=== PATIENT | female | born 1935 | race Two or more races ===

== ENCOUNTER 2016-03-26 18:19 | Inpatient (IN) | payer MEDICARE, OTHER ==
[~2016-03-26] VITALS: Ht 160 cm; Wt 68.0 kg
[~2016-03-26 18:19] MED LIST: ADALAT20 MG ORAL; ASPIRIN EC81 MG ORAL; ATIVAN0.5 MG ORAL; ATORVASTATIN CA20 MG ORAL; CARDIZEM30 MG ORAL; CARDIZEM60 MG ORAL; CATAPRES0.1 MG ORAL; CATAPRES0.2 MG ORAL; CEFTRIAXON1 GM/50 ML IV; CHERATUSSIN AC118 ML PO; COMBIVENT RESPIM4 GM IH; COUMADIN3 MG ORAL; CRANBERRY TABL1 EACH PO; DUONEB 0.5-3(2.53 ML HHN; FERROUS SULFAT325 MG ORAL; HYDROCODON-ACE1 EA18 PO; LEVOTHYROXINE88 MCG ORAL; LOSARTAN POTASS50 MG ORAL; METOPROLOL TART50 M1 ORAL; MIRALAX17 G2 ORAL; MULTIVITAMINS1 EAC2 ORAL; NOVOLOG100 UNIT/5 SQ; OMEPRAZOLE20 M2 ORAL; OYSTER SHELL C500 MG PO; REMERON15 MG ORAL; ROBITUSSIN NIG118 ML PO; STARLIX60 MG ORAL; TYLENOL650 MG/20. ORAL; VITAMIN D400 INTLU ORAL; ZANTAC150 MG ORAL; ZOFRAN4 M1 ORAL; ZOFRAN4 M3 ORAL
[2016-03-26 18:30] VITALS: BP 223/108
--- NOTE | 2016-03-26 19:07 | Emergency Room Report ---
History of Present Illness General Chief Complaint: Upper Respiratory Illness Source: Patient, Family Member Present Illness HPI Patient present with complaints of shortness of breath Family reports that around 5:00 this evening patient became increasingly short of breath Increased cough They feel that the patient's mouth area had become more blue , Reports that they have requested oxygen but the patient did not have oxygen Denies any chest pain Was no reports of chest heaviness or pain Denies any vomiting or diarrhea denies any recent travel Patient had a recent hospitalization Allergies: Coded Allergies: No Known Allergies (Unverified , 02/11/16) Patient History Past Medical History: see triage record Pertinent Family History: none Reviewed Nursing Documentation: PMH: Agreed, PSxH: Agreed Nursing Documentation-PMH Hx Cardiac Problems: Yes - A-FLUTTER Hx Hypertension: Yes Hx Gastrointestinal Problems: Yes - GERD Hx Cerebrovascular Accident: Yes - April 2015, first CVA 2003 Review of Systems All Other Systems: negative except mentioned in HPI Physical Exam Vital Signs Date Time Temp Pulse Resp B/P Pulse Ox O2 Delivery O2 Flow Rate FiO2 03/26/16 18:15 92 20 213/81 99 Room Air 03/26/16 18:30 98.2 Sp02 EP Interpretation: reviewed, normal General Appearance: mild distress - Patient appears tachypneic and uncomfortable Head: normocephalic, atraumatic Eyes: bilateral eye EOMI, bilateral eye PERRL ENT: hearing grossly normal, normal pharynx, TMs + canals normal, uvula midline Neck: full range of motion, supple, no meningismus, no bony tend Respiratory: no retraction, no accessory muscle use, crackles - Diffusely Cardiovascular #1: normal peripheral pulses, regular rate, rhythm, no edema, no gallop, no JVD, no murmur Gastrointestinal: normal bowel sounds, non tender, soft, no mass, no organomegaly, non-distended, no guarding, no hernia, no pulsatile mass, no rebound Genitourinary: no CVA tenderness Musculoskeletal: normal inspection Neurologic: oriented x3, responsive, assistant buyer III-XII nml as tested, motor strength/ tone normal, sensory intact Psychiatric: mood/affect normal Skin: other - Rash noted to the mid upper chest area Lymphatic: normal inspection, no adenopathy Medical Decision Making Diagnostic Impression: Primary Impression: Hypertensive urgency, malignant Additional Impressions: Renal failure Hyperkalemia Respiratory distress ER Course Patient is a fairly complex patient with multiple differential to consideration including but not limited to cardiac cardiopulmonary and vascular emergencies Patient's blood work reveals worsening symptoms from previous as any renal failure hyperkalemia Patient's blood pressure was addressed here as well Patient appears to be doing better on oxygen at this time requires admission for further care on previous admission it was documented multiple times of the patient's DO NOT RESUSCITATE I do not have a polst form however to confirm his Labs Test 03/26/16 18:50 03/26/16 19:33 03/26/16 19:52 White Blood Count 14.2 K/UL (4.8-10.8) Red Blood Count 4.30 M/UL (4.20-5.40) Hemoglobin 13.4 G/DL (12.0-16.0) Hematocrit 41.2 % (37.0-47.0) Mean Corpuscular Volume 96 FL (80-99) Mean Corpuscular Hemoglobin 31.2 PG (27.0-31.0) Mean Corpuscular Hemoglobin Concent 32.6 G/DL (32.0-36.0) Red Cell Distribution Width 14.4 % (11.6-14.8) Platelet Count 283 K/UL (150-450) Mean Platelet Volume 6.6 FL (6.5-10.1) Neutrophils (%) (Auto) % (45.0-75.0) Lymphocytes (%) (Auto) % (20.0-45.0) Monocytes (%) (Auto) % (1.0-10.0) Eosinophils (%) (Auto) % (0.0-3.0) Basophils (%) (Auto) % (0.0-2.0) Differential Total Cells Counted 100 Neutrophils % (Manual) 70 % (45-75) Lymphocytes % (Manual) 5 % (20-45) Monocytes % (Manual) 2 % (1-10) Eosinophils % (Manual) 13 % (0-3) Basophils % (Manual) 0 % (0-2) Band Neutrophils 10 % (0-8) Platelet Estimate Adequate Platelet Morphology Normal Red Blood Cell Morphology Normal Prothrombin Time 21.4 SEC (9.30-11.50) Prothromb Time International Ratio 2.1 (0.9-1.1) Activated Partial Thromboplast Time 25 SEC (23-33) Sodium Level 131 mEQ/L (135-145) Potassium Level 5.9 mEQ/L (3.4-4.9) Chloride Level 89 mEQ/L (98-107) Carbon Dioxide Level 21 mEQ/L (20-30) Anion Gap 21 (5-15) Blood Urea Nitrogen 46 mg/dL (7-23) Creatinine 2.1 mg/dL (0.5-0.9) Estimat Glomerular Filtration Rate mL/min (>60) Glucose Level 242 mg/dL (74-106) Lactic Acid Level 3.50 mmol/L (0.66-2.22) 3.00 mmol/L (0.66-2.22) Calcium Level 10.4 mg/dL (8.6-10.2) Total Bilirubin 0.5 mg/dL (0.0-1.2) Aspartate Amino Transf (AST/SGOT) 44 U/L (5-40) Alanine Aminotransferase (ALT/SGPT) 25 U/L (3-33) Alkaline Phosphatase 133 U/L (35-104) Total Creatine Kinase 55 U/L (26-140) Creatine Kinase MB < 1.5 ng/mL (< 3.8) Creatine Kinase MB Relative Index Troponin I < 0.30 ng/mL (<=0.30) Pro-B-Type Natriuretic Peptide 1036 pg/mL (0-450) Total Protein 10.0 g/dL (6.6-8.7) Albumin 3.8 g/dL (3.5-5.2) Globulin 6.2 g/dL Albumin/Globulin Ratio 0.6 (1.0-2.7) Lipase 58 U/L (< 60) Urine Color Pale yellow Urine Appearance Clear Urine pH 6.5 (4.5-8.0) Urine Specific [place] 1.010 (1.005-1.035) Urine Protein 4+ (NEGATIVE) Urine Glucose (UA) 2+ (NEGATIVE) Urine Ketones Negative (NEGATIVE) Urine Occult Blood 4+ (NEGATIVE) Urine Nitrite Positive (NEGATIVE) Urine Bilirubin Negative (NEGATIVE) Urine Urobilinogen Normal MG/DL (0.0-1.0) Urine Leukocyte Esterase 1+ (NEGATIVE) Urine RBC 5-10 /HPF (0 - 2) Urine WBC 15-20 /HPF (0 - 2) Urine Squamous Epithelial Cells Few /LPF (NONE/OCC) Urine Bacteria Many /HPF (NONE) EKG Diagnostic Results Rate: normal Rhythm: NSR ST Segments: no acute changes Rhythm Strip Diag. Results EP Interpretation: yes Rate: 88 Rhythm: NSR, no PVC's, no ectopy Chest X-Ray Diagnostic Results EP Interpretation: Yes Findings: no consolidation, no effusion, no pneumothorax Number of Views: 1 Last Vital Signs Date Time Temp Pulse Resp B/P Pulse Ox O2 Delivery O2 Flow Rate FiO2 03/26/16 18:58 88 29 Room Air 03/26/16 18:30 98.2 223/108 97 Status: improved Disposition: ADMITTED INPATIENT Condition: Critical Referrals: Hasmukh Cope MD (PCP) LUIS DANIEL BARRETO D.O. Mar 26, 2016 19:07
[2016-03-26] MEDS ORDERED: Nitroglycerin 2% oint pkt TOPIC ONE (19:15)
[2016-03-26] MEDS ORDERED: Levalbuterol Inh UD 1.25mg/0.5ml HHN ONE (19:15)
[2016-03-26 19:16] LABS: MEAN CORPUSCULAR HEMOGLOBIN 31.2 PG (27.0-31.0); MEAN CORPUSCULAR HGB CONC 32.6 G/DL (32.0-36.0); MEAN CORPUSCULAR VOLUME 96 FL (80-99); MEAN PLATELET VOLUME 6.6 FL (6.5-10.1); PLATELET COUNT 283 K/UL (150-450); RED CELL DISTRIBUTION WIDTH 14.4 % (11.6-14.8); WHITE BLOOD COUNT 14.2 K/UL (4.8-10.8)
[2016-03-26 19:19] LABS: ALANINE AMINOTRANSFERASE 25 U/L (3-33); ALBUMIN/GLOBULIN RATIO 0.6 (1.0-2.7); ANION GAP 21 (5-15); ASPARTATE AMINO TRANSFERASE 44 U/L (5-40); CALCIUM 10.4 mg/dL (8.6-10.2); CARBON DIOXIDE 21 mEQ/L (20-30); CHLORIDE 89 mEQ/L (98-107); CREATININE 2.1 mg/dL (0.5-0.9); HEMOLYSIS 325; LIPASE 58 U/L (< 60); POTASSIUM 5.9 mEQ/L (3.4-4.9); SODIUM 131 mEQ/L (135-145)
[2016-03-26 19:24] LABS: TROPONIN I < 0.30 ng/mL (<=0.30)
[2016-03-26 19:26] LABS: REFLEX LACTIC ACID YES OR NO YES
[2016-03-26 19:58] LABS: CKMB < 1.5 ng/mL (< 3.8); INR 2.1 (0.9-1.1); PROTHROMBIN TIME 21.4 SEC (9.30-11.50)
[2016-03-26] MEDS ORDERED: Sodium Polystyrene Sulfonate 15gm Powder ORAL ONE (20:00)
[2016-03-26] MEDS ORDERED: Albuterol ud Inhalation HHN ONE (20:00)
[2016-03-26 20:19] LABS: APPEARANCE,URINE CLEAR; KETONES,URINE NEGATIVE (NEGATIVE); LEUKOCYTE ESTERASE ,URINE 1+ (NEGATIVE); NITRITE,URINE POSITIVE (NEGATIVE); PH,URINE 6.5 (4.5-8.0); PROTEIN,URINE 4+ (NEGATIVE); UROBILINOGEN,URINE NORMAL MG/DL (0.0-1.0)
[2016-03-26 20:34] VITALS: BP 130/67
[2016-03-26 20:41] LABS: BACTERIA,URINE MANY /HPF; SQUAMOUS EPITHELIAL CELL,UR FEW /LPF (NONE/OCC)
[2016-03-26 20:42] LABS: WBC,URINE 15-20 /HPF (0 - 2)
[2016-03-26 20:55] LABS: BAND NEUTROPHILS % (MANUAL) 10 % (0-8); BASOPHILS % (MANUAL) 0 % (0-2); EOSINOPHILS % (MANUAL) 13 % (0-3); LYMPHOCYTES % (MANUAL) 5 % (20-45); NEUTROPHILS % (MANUAL) 70 % (45-75); PLATELET ESTIMATE ADEQUATE; PLATELET MORPHOLOGY NORMAL; TOTAL CELLS COUNTED 100
[2016-03-26 22:16] VITALS: BP 118/61
[2016-03-27] VITALS (9 sets, daily range): BP systolic 106–166; BP diastolic 45–101
[2016-03-27] MEDS ORDERED: Morphine Sulfate 2mg/ml Inj IVP PRN (12:00)
[2016-03-27] MEDS ORDERED: Labetalol 5mg/ml 20ml vial IV PRN (12:00)
[2016-03-27] MEDS ORDERED: Mylanta II UD 30ml ORAL PRN (12:00)
[2016-03-27] MEDS ORDERED: LORazepam Inj 2mg/ml 1ml IV PRN (12:00)
[2016-03-27] MEDS ORDERED: Zolpidem 5mg tab ORAL PRN (12:00)
[2016-03-27] MEDS ORDERED: Miralax 17gm pkt ORAL PRN (12:00)
[2016-03-27] MEDS ORDERED: Enalaprilat 2.5mg/2ml Inj IV PRN (12:00)
--- NOTE | 2016-03-27 12:24 | Consultation ---
History of Present Illness General Date patient seen: Mar 27, 2016 Chief Complaint: Upper Respiratory Illness Referring physician: Anatoliy Reason for Consultation: hypertensive emergency Present Illness HPI 80 year old female with hx of HTN, DM, anxiety, jail resident presented to ER with complaints of shortness of breath, starting around 5:00 PM of day of admission with Increased cough. Apparently she became cyanotic but there was no oxygen available at the nursing facility. There was no reports of chest heaviness or pain. Patient is currently awake, conversing in [place]ian. Pt's son and sister are at the bed site translating. Allergies: Coded Allergies: No Known Allergies (Unverified , 02/11/16) Medication History Scheduled Aspirin Ec* (Aspirin Ec*), 81 MG ORAL EVERY OTHER DAY, (Reported) Atorvastatin Calcium* (Atorvastatin Calcium*), 10 MG ORAL BEDTIME, (Reported) Ceftriaxone Na/Dextrose,Iso (Ceftriaxone 1 Gm Piggyback), 1 GM IV q24hr, ( Reported) Clonidine Hcl* (Catapres*), 0.2 MG ORAL Q4HR, (Reported) Clonidine Hcl* (Catapres*), 0.1 MG ORAL EVERY 4 HOURS, (Reported) Cranberry Conc/C/Bacill Coag (Cranberry Tablet), 1 EACH PO BID, (Reported) Diltiazem HCl (Diltiazem 12Hr ER), 30 MG ORAL EVERY 8 HOURS, (Reported) Diltiazem Hcl* (Cardizem*), 60 MG ORAL EVERY 6 HOURS, (Reported) Guaifenesin/Codeine Phosphate (Cheratussin Ac Syrup), 5 ML PO EVERY 4 HOURS, ( Reported) Insulin Aspart (Novolog), SQ BEFORE MEALS AND HS, (Reported) Ipratropium/Albuterol Sulfate (DuoNeb 0.5-3(2.5)mg/3ml), 3 ML HHN Q4HR, ( Reported) Lorazepam* (Ativan*), 0.5 MG ORAL EVERY 6 HOURS, (Reported) Lorazepam* (Ativan*), 0.5 MG ORAL Q6HR, (Reported) Nateglinide* (Starlix*), 60 MG ORAL THREE TIMES A DAY, (Reported) Polyethylene Glycol 3350* (Miralax*), 17 GM ORAL DAILY, (Reported) Ranitidine Hcl* (Zantac*), 150 MG ORAL DAILY, (Reported) Warfarin Sod* (Coumadin*), 3 MG ORAL DAILY, (Reported) Scheduled PRN Acetaminophen (Acetaminophen), 650 MG ORAL Q4HR PRN for Prn Headache/Temp > 101, (Reported) Ondansetron (Zofran), 4 MG ORAL Q6H PRN for Nausea & Vomiting, (Reported) Patient History Healthcare decision maker Resuscitation status Full Code Advanced Directive on File Past Medical/Surgical History Past Medical/Surgical History: (1) Hypertension (2) Diabetes mellitus Social History Social History: (1) penitentiary resident (2) DNR (do not resuscitate) Review of Systems All Other Systems: negative except mentioned in HPI Physical Exam General Appearance: WD/WN HEENT: normocephalic, atraumatic Neck: non-tender, normal alignment Respiratory/Chest: chest wall non-tender, lungs clear Cardiovascular/Chest: normal peripheral pulses, normal rate Abdomen: normal bowel sounds Genitourinary/Rectal: normal genital exam Extremities: normal range of motion Neurologic: field staff II-XII grossly normal Last 24 Hour Vital Signs Date Time Temp Pulse Resp B/P Pulse Ox O2 Delivery O2 Flow Rate FiO2 03/27/16 08:23 78 03/27/16 08:11 98.2 75 18 161/70 99 Nasal Cannula 2.0 03/27/16 08:00 96.8 81 19 166/82 97 Nasal Cannula 2.0 03/27/16 07:35 75 18 161/70 99 Nasal Cannula 2.0 03/27/16 05:59 72 21 137/66 99 Nasal Cannula 2.0 03/27/16 04:20 72 18 134/58 99 Nasal Cannula 2.0 03/27/16 02:22 79 21 125/57 100 Nasal Cannula 2.0 03/27/16 00:36 78 24 108/60 97 Nasal Cannula 2.0 03/26/16 22:16 98.2 84 21 118/61 100 Nasal Cannula 2.0 03/26/16 20:34 98.2 90 38 130/67 100 Nasal Cannula 2.0 03/26/16 20:22 87 24 100 Nasal Cannula 2.0 03/26/16 20:07 85 24 100 Nasal Cannula 2.0 03/26/16 20:03 81 23 99 Nasal Cannula 2.0 03/26/16 19:53 82 23 98 Nasal Cannula 2.0 28 03/26/16 19:52 82 23 Nasal Cannula 2.0 28 03/26/16 19:10 223/108 03/26/16 18:58 88 29 Room Air 03/26/16 18:30 98.2 88 29 223/108 97 Room Air 03/26/16 18:15 92 20 213/81 99 Room Air Intake and Output 03/26/16 03/27/16 19:00 07:00 Output Total 475 ml Balance -475 ml Output Urine Total 475 ml Laboratory Tests Test 03/26/16 18:50 03/26/16 19:33 03/26/16 19:52 White Blood Count 14.2 K/UL (4.8-10.8) H Red Blood Count 4.30 M/UL (4.20-5.40) Hemoglobin 13.4 G/DL (12.0-16.0) Hematocrit 41.2 % (37.0-47.0) Mean Corpuscular Volume 96 FL (80-99) Mean Corpuscular Hemoglobin 31.2 PG (27.0-31.0) H Mean Corpuscular Hemoglobin Concent 32.6 G/DL (32.0-36.0) Red Cell Distribution Width 14.4 % (11.6-14.8) Platelet Count 283 K/UL (150-450) Mean Platelet Volume 6.6 FL (6.5-10.1) Neutrophils (%) (Auto) % (45.0-75.0) Lymphocytes (%) (Auto) % (20.0-45.0) Monocytes (%) (Auto) % (1.0-10.0) Eosinophils (%) (Auto) % (0.0-3.0) Basophils (%) (Auto) % (0.0-2.0) Differential Total Cells Counted 100 Neutrophils % (Manual) 70 % (45-75) Lymphocytes % (Manual) 5 % (20-45) L Monocytes % (Manual) 2 % (1-10) Eosinophils % (Manual) 13 % (0-3) H Basophils % (Manual) 0 % (0-2) Band Neutrophils 10 % (0-8) H Platelet Estimate Adequate Platelet Morphology Normal Red Blood Cell Morphology Normal Prothrombin Time 21.4 SEC (9.30-11.50) H Prothromb Time International Ratio 2.1 (0.9-1.1) H Activated Partial Thromboplast Time 25 SEC (23-33) Sodium Level 131 mEQ/L (135-145) L Potassium Level 5.9 mEQ/L (3.4-4.9) H Chloride Level 89 mEQ/L (98-107) L Carbon Dioxide Level 21 mEQ/L (20-30) Anion Gap 21 (5-15) H Blood Urea Nitrogen 46 mg/dL (7-23) H Creatinine 2.1 mg/dL (0.5-0.9) H Estimat Glomerular Filtration Rate mL/min (>60) Glucose Level 242 mg/dL (74-106) H Lactic Acid Level 3.50 mmol/L (0.66-2.22) H 3.00 mmol/L (0.66-2.22) H Calcium Level 10.4 mg/dL (8.6-10.2) H Total Bilirubin 0.5 mg/dL (0.0-1.2) Aspartate Amino Transf (AST/SGOT) 44 U/L (5-40) H Alanine Aminotransferase (ALT/SGPT) 25 U/L (3-33) Alkaline Phosphatase 133 U/L (35-104) H Total Creatine Kinase 55 U/L (26-140) Creatine Kinase MB < 1.5 ng/mL (< 3.8) Creatine Kinase MB Relative Index Troponin I < 0.30 ng/mL (<=0.30) Pro-B-Type Natriuretic Peptide 1036 pg/mL (0-450) H Total Protein 10.0 g/dL (6.6-8.7) H Albumin 3.8 g/dL (3.5-5.2) Globulin 6.2 g/dL Albumin/Globulin Ratio 0.6 (1.0-2.7) L Lipase 58 U/L (< 60) Urine Color Pale yellow Urine Appearance Clear Urine pH 6.5 (4.5-8.0) Urine Specific [place] 1.010 (1.005-1.035) Urine Protein 4+ (NEGATIVE) H Urine Glucose (UA) 2+ (NEGATIVE) H Urine Ketones Negative (NEGATIVE) Urine Occult Blood 4+ (NEGATIVE) H Urine Nitrite Positive (NEGATIVE) H Urine Bilirubin Negative (NEGATIVE) Urine Urobilinogen Normal MG/DL (0.0-1.0) Urine Leukocyte Esterase 1+ (NEGATIVE) H Urine RBC 5-10 /HPF (0 - 2) H Urine WBC 15-20 /HPF (0 - 2) H Urine Squamous Epithelial Cells Few /LPF (NONE/OCC) Urine Bacteria Many /HPF (NONE) H Height (Feet): 5 Height (Inches): 3.00 Weight (Pounds): 150 Medications Current Medications Medications (Trade) Dose Ordered Sig/Matteo Route PRN Reason Start Time Stop Time Status Last Admin Dose Admin Acetaminophen (Tylenol) 650 mg Q4H PRN ORAL fever 03/27/16 12:00 04/26/16 11:59 UNV Al Hydroxide/Mg Hydroxide (Mylanta II) 30 ml Q6H PRN ORAL dyspepsia 03/27/16 12:00 04/26/16 11:59 UNV Aspirin (Ecotrin) 81 mg EVERY OTHER DAY ORAL 03/29/16 09:00 04/28/16 08:59 UNV Atorvastatin Calcium (Lipitor) 10 mg BEDTIME ORAL 03/27/16 21:00 04/26/16 20:59 UNV Clonidine HCl (Catapres) 0.1 mg EVERY 4 HOURS ORAL 03/27/16 13:00 04/26/16 12:59 UNV Dextrose (Dextrose 50%) STAT PRN IV Hypoglycemia 03/27/16 12:00 04/26/16 11:59 UNV Diltiazem HCl (Cardizem) 30 mg EVERY 8 HOURS ORAL 03/27/16 14:00 04/26/16 13:59 UNV Diltiazem HCl (Cardizem) 60 mg EVERY 6 HOURS ORAL 03/27/16 12:00 04/26/16 11:59 UNV Enalaprilat 2.5 mg 2.5 mg EVERY 4 HOURS PRN IV sbp more than 200 03/27/16 12:00 04/26/16 11:59 UNV Hydralazine HCl (Apresoline) 20 mg Q4H PRN IV sbp more than 160 03/27/16 12:00 04/26/16 11:59 UNV Labetalol HCl (Normodyne) 20 mg EVERY HOUR PRN IV sbo more than 180 03/27/16 12:00 04/26/16 11:59 UNV Lorazepam (Ativan 2mg/ml 1ml) 0.5 mg Q4H PRN IV For Anxiety 03/27/16 12:00 04/03/16 11:59 UNV Morphine Sulfate (Morphine Sulfate) 1 mg EVERY 4 HOURS PRN IVP For Pain 03/27/16 12:00 04/03/16 11:59 UNV Nateglinide (Starlix) 60 mg THREE TIMES A DAY ORAL 03/27/16 13:00 04/26/16 12:59 UNV Ondansetron HCl (Zofran) 4 mg Q6H PRN IVP Nausea & Vomiting 03/27/16 12:00 04/26/16 11:59 UNV Polyethylene Glycol (Miralax) 17 gm HSPRN PRN ORAL Constipation 03/27/16 12:00 04/26/16 11:59 UNV Sodium Chloride (Sodium Chloride 1000ml bag) 1,000 ml @ 100 mls/hr Q10H IV 03/27/16 12:15 04/26/16 12:14 UNV Vitamin A/Vitamin D (A & D Oint) 1 applic EVERY 12 HOURS TOPIC 03/27/16 21:00 04/26/16 20:59 UNV Zolpidem Tartrate (Ambien) 5 mg HSPRN PRN ORAL Insomnia 03/27/16 12:00 04/26/16 11:59 UNV Assessment/Plan Problem List: (1) Hypertensive urgency, malignant ICD Codes: I16.0 - Hypertensive urgency SNOMED: 691638510 (2) Acute encephalopathy ICD Codes: G93.40 - Encephalopathy, unspecified SNOMED: 7611773 (3) Dyspnea ICD Codes: R06.00 - Dyspnea, unspecified SNOMED: 503322039 Qualifiers: Qualified Codes: R06.02 - Shortness of breath (4) ATN (acute tubular necrosis) ICD Codes: N17.0 - Acute kidney failure with tubular necrosis SNOMED: 31298318 (5) DNR (do not resuscitate) ICD Codes: Z66 - Do not resuscitate SNOMED: 951115292 Assessment/Plan monitor bp and treat monitor renal parameters IV fluids renal studies repiratory treatment dvt prophylaxis titrate cardiacmeds. pts sister and sons don't want any CPR AUDIE MAY Mar 27, 2016 12:24
[2016-03-27] MEDS: NovoLOG Insulin Flexpen SUBQ SCH ×3 (13:15→20:47)
--- NOTE | 2016-03-27 13:31 | Consultation ---
BEATRIZ ESCALERA M.D. Mar 27, 2016 13:31
--- NOTE | 2016-03-27 13:48 | Cardiology Report ---
APPROVED REPORT EKG Measurement Heart [id number] DC [id number] [id number] Normal sinus rhythm Normal ECG
--- NOTE | 2016-03-27 13:57 | Consultation ---
Consult Note Assessment/Plan ID Dic # [id number] A: Proabable Pna Cough ( Dry ) and SOB Probable UTI Pyuria Leukocytosis JOYA HTN GERD CVA x 2 in 2016 Hypothyroidism P: cont Cefepime d# 1 Monitor CBC Monitor BMP Monitor C- Xray Monitor cultures ( Bl, Ur ) Thank you BEATRIZ ESCALERA M.D. Mar 27, 2016 13:57
--- NOTE | 2016-03-27 16:36 | Cardiac Electrophysiology PN ---
Subjective Subjective [id number] Objective Last 24 Hour Vital Signs Date Time Temp Pulse Resp B/P Pulse Ox O2 Delivery O2 Flow Rate FiO2 03/27/16 15:01 135/70 03/27/16 12:00 101 03/27/16 12:00 97.9 101 20 135/70 97 Nasal Cannula 2.0 03/27/16 08:23 78 03/27/16 08:11 98.2 75 18 161/70 99 Nasal Cannula 2.0 28 03/27/16 08:00 96.8 81 19 166/82 97 Nasal Cannula 2.0 03/27/16 07:35 75 18 161/70 99 Nasal Cannula 2.0 03/27/16 05:59 72 21 137/66 99 Nasal Cannula 2.0 03/27/16 04:20 72 18 134/58 99 Nasal Cannula 2.0 03/27/16 02:22 79 21 125/57 100 Nasal Cannula 2.0 03/27/16 00:36 78 24 108/60 97 Nasal Cannula 2.0 03/26/16 22:16 98.2 84 21 118/61 100 Nasal Cannula 2.0 03/26/16 20:34 98.2 90 38 130/67 100 Nasal Cannula 2.0 03/26/16 20:22 87 24 100 Nasal Cannula 2.0 28 03/26/16 20:07 85 24 100 Nasal Cannula 2.0 03/26/16 20:03 81 23 99 Nasal Cannula 2.0 28 03/26/16 19:53 82 23 98 Nasal Cannula 2.0 28 03/26/16 19:52 82 23 Nasal Cannula 2.0 03/26/16 19:10 223/108 03/26/16 18:58 88 29 Room Air 03/26/16 18:30 98.2 88 29 223/108 97 Room Air 03/26/16 18:15 92 20 213/81 99 Room Air Intake and Output 03/26/16 03/27/16 19:00 07:00 Output Total 475 ml Balance -475 ml Output Urine Total 475 ml Laboratory Tests Test 03/26/16 18:50 03/26/16 19:33 03/26/16 19:52 White Blood Count 14.2 K/UL (4.8-10.8) H Red Blood Count 4.30 M/UL (4.20-5.40) Hemoglobin 13.4 G/DL (12.0-16.0) Hematocrit 41.2 % (37.0-47.0) Mean Corpuscular Volume 96 FL (80-99) Mean Corpuscular Hemoglobin 31.2 PG (27.0-31.0) H Mean Corpuscular Hemoglobin Concent 32.6 G/DL (32.0-36.0) Red Cell Distribution Width 14.4 % (11.6-14.8) Platelet Count 283 K/UL (150-450) Mean Platelet Volume 6.6 FL (6.5-10.1) Neutrophils (%) (Auto) % (45.0-75.0) Lymphocytes (%) (Auto) % (20.0-45.0) Monocytes (%) (Auto) % (1.0-10.0) Eosinophils (%) (Auto) % (0.0-3.0) Basophils (%) (Auto) % (0.0-2.0) Differential Total Cells Counted 100 Neutrophils % (Manual) 70 % (45-75) Lymphocytes % (Manual) 5 % (20-45) L Monocytes % (Manual) 2 % (1-10) Eosinophils % (Manual) 13 % (0-3) H Basophils % (Manual) 0 % (0-2) Band Neutrophils 10 % (0-8) H Platelet Estimate Adequate Platelet Morphology Normal Red Blood Cell Morphology Normal Prothrombin Time 21.4 SEC (9.30-11.50) H Prothromb Time International Ratio 2.1 (0.9-1.1) H Activated Partial Thromboplast Time 25 SEC (23-33) Sodium Level 131 mEQ/L (135-145) L Potassium Level 5.9 mEQ/L (3.4-4.9) H Chloride Level 89 mEQ/L (98-107) L Carbon Dioxide Level 21 mEQ/L (20-30) Anion Gap 21 (5-15) H Blood Urea Nitrogen 46 mg/dL (7-23) H Creatinine 2.1 mg/dL (0.5-0.9) H Estimat Glomerular Filtration Rate mL/min (>60) Glucose Level 242 mg/dL (74-106) H Lactic Acid Level 3.50 mmol/L (0.66-2.22) H 3.00 mmol/L (0.66-2.22) H Calcium Level 10.4 mg/dL (8.6-10.2) H Total Bilirubin 0.5 mg/dL (0.0-1.2) Aspartate Amino Transf (AST/SGOT) 44 U/L (5-40) H Alanine Aminotransferase (ALT/SGPT) 25 U/L (3-33) Alkaline Phosphatase 133 U/L (35-104) H Total Creatine Kinase 55 U/L (26-140) Creatine Kinase MB < 1.5 ng/mL (< 3.8) Creatine Kinase MB Relative Index Troponin I < 0.30 ng/mL (<=0.30) Pro-B-Type Natriuretic Peptide 1036 pg/mL (0-450) H Total Protein 10.0 g/dL (6.6-8.7) H Albumin 3.8 g/dL (3.5-5.2) Globulin 6.2 g/dL Albumin/Globulin Ratio 0.6 (1.0-2.7) L Lipase 58 U/L (< 60) Urine Color Pale yellow Urine Appearance Clear Urine pH 6.5 (4.5-8.0) Urine Specific [place] 1.010 (1.005-1.035) Urine Protein 4+ (NEGATIVE) H Urine Glucose (UA) 2+ (NEGATIVE) H Urine Ketones Negative (NEGATIVE) Urine Occult Blood 4+ (NEGATIVE) H Urine Nitrite Positive (NEGATIVE) H Urine Bilirubin Negative (NEGATIVE) Urine Urobilinogen Normal MG/DL (0.0-1.0) Urine Leukocyte Esterase 1+ (NEGATIVE) H Urine RBC 5-10 /HPF (0 - 2) H Urine WBC 15-20 /HPF (0 - 2) H Urine Squamous Epithelial Cells Few /LPF (NONE/OCC) Urine Bacteria Many /HPF (NONE) H Microbiology Date/Time Source Procedure Growth Status 03/26/16 18:50 Blood Blood Culture - Preliminary Resulted RICHARD HOWARD Mar 27, 2016 16:36
--- NOTE | 2016-03-27 16:50 | History & Physical ---
History and Physical History & Physicial Dictated for Int Med-Dr Cope no. [id number]. EMELY LORD Mar 27, 2016 16:50
[2016-03-27] MEDS: Nateglinide 60mg tab ORAL SCH (17:46)
--- NOTE | 2016-03-27 17:49 | Wound Care Consultation ---
Wound Assessment Wound Assessment #1: Wound Present on Admission: Yes New Wound: No Status Change of Wound: No Wound Location Body Site Modif: mid Wound Location Body Site: sacral Wound Type: pressure ulcer Pepe Test: Does not Pepe Pressure Ulcer Stage: deep tissue injury Wound Thickness: Full Thickness Wound Length: 5.0 Wound Width: 6.0 Wound Depth: utd Percent of Wound Purple/Maroon: 100 Wound Drainage Amount: None Wound Drainage Odor: None/Absent Tissue Surrounding Wound: Erythemic Wound General Appearance: Reddened Wound Assessment #2: Wound Number: #2 Wound Present on Admission: Yes New Wound: No Status Change of Wound: No Wound Location Body Site Modif: left Wound Location Body Site: buttocks Wound Type: pressure ulcer Pepe Test: Does not Pepe Pressure Ulcer Stage: I Wound Length: 4.0 Wound Width: 5.0 Wound Drainage Amount: None Wound Drainage Odor: None/Absent Tissue Surrounding Wound: Erythemic Wound General Appearance: Asymptomatic, Reddened Wound Assessment #3: Wound Number: #3 Wound Present on Admission: Yes New Wound: No Status Change of Wound: No Wound Location Body Site Modif: right Wound Location Body Site: buttocks Wound Type: pressure ulcer Pepe Test: Does not Pepe Pressure Ulcer Stage: I Wound Length: 5.0 Wound Width: 5.0 Wound Drainage Amount: None Wound Drainage Odor: None/Absent Tissue Surrounding Wound: Erythemic Wound General Appearance: Asymptomatic, Reddened Wound Comment #1 Sacral DTI #2 Left and Right buttocks stage I Recommendation -Keep clean and dry -Turn and reposition -Local wound care as ordered -Low air loss overlay mattress -Offload both heels -Optimize nutrition -Assess and f/u accordingly for any changes SPENCER DUGAN RN Mar 27, 2016 17:49
[2016-03-27 18:11] LABS: INR 3.2 (0.9-1.1); PROTHROMBIN TIME 33.9 SEC (9.30-11.50)
[2016-03-27] MEDS: Vitamin A&D Oint 2oz Tube TOPIC SCH (20:52)
--- NOTE | 2016-03-27 20:58 | Consultation ---
DATE OF CONSULTATION: CONSULTING PHYSICIAN: Johny Stone M.D. REASON FOR CONSULTATION: Evaluation of the patient for sepsis, leukocytosis, pneumonia, and antibiotic management. HISTORY OF PRESENT ILLNESS: The patient is an 80-year-old female who came to the hospital with above problems due to uncontrolled blood pressure, respiratory distress, and increase of cough. Infectious Disease consultation has been requested for further evaluation of the patient. At time of admission, the patient was found to have leukocytosis. According to the patient, patient is not able to pull out to produce sputum. PAST MEDICAL HISTORY: 1. Stroke. 2. History of hypothyroidism. 3. Hypertension. 4. GERD. 5. CVA x2. REVIEW OF SYSTEMS: HEENT: No recent change in vision or hearing. Pulmonary: As mentioned above. The patient has chronic cough that has worsened that is mainly dry. Cardiovascular: No pain. Gastrointestinal: GERD. Genitourinary: No dysuria. MEDICATIONS: Cefepime. ALLERGIES: No known drug allergies. SOCIAL HISTORY: Lives in longterm. FAMILY HISTORY: Noncontributory. PHYSICAL EXAMINATION: VITAL SIGNS: Temperature 97.9, blood pressure 135/70, pulse 86, and respiratory rate 18. HEENT: No icterus. NECK: No lymphadenopathy. CHEST: Coarse breathing sounds. HEART: S1 and S2. ABDOMEN: Soft and nontender. EXTREMITIES: No cyanosis. NEUROLOGIC: Awake and alert. LABORATORY DATA: White blood cells 14, hemoglobin 13, and platelets 288,000. UA shows 15 to 20 white blood cells. BUN 46 and creatinine 2.1. AST 44, ALT 25, and alkaline phosphatase 133. Urine culture back in January was growing enterococcus and Enterobacter. was redone. Chest x-ray pending. Urine culture is pending. Blood culture is pending. ASSESSMENT AND PLAN: 1. The patient is an 81-year-old female, who came to the hospital due to respiratory distress. Chest x-ray from the time of admission is pending. The patient was found to have leukocytosis. The patient's source of infection appears to be both pneumonia and urinary tract infection. The patient has been started on IV cefepime and we will continue the patient on IV cefepime. 2. Monitor CBC. 3. Monitor BMP. 4. Culture (blood, urine). 5. Monitor chest x-ray. 6. Based on the patient's clinical findings and labs, we will do further recommendations. Thank you, Dr. Cope for allowing me to participate in the care of this patient. I will follow the patient with you during this hospitalization Johny Stone M.D. DR: Angel JOB#: [id number] CC:
--- NOTE | 2016-03-27 21:18 | History and Physical Report ---
DATE OF ADMISSION: 03/26/[address] Cope. CHIEF COMPLAINT: The patient is an 80-year-old female, who presents with chief complaint of shortness of breath. HISTORY OF PRESENT ILLNESS: The patient was admitted to [facility] in 01/2016. The patient was admitted at that time for atrial fibrillation with rapid ventricular rate. The patient is currently a resident of [facility]. According to staff at [facility], the patient has experienced shortness of breath for the last couple of days. The patient also has a cough, which is nonproductive. The patient presented to [facility]. The patient was admitted for shortness of breath to rule out congestive heart failure versus pneumonia. PAST MEDICAL HISTORY: Significant for, 1. Cerebrovascular disease, status post cerebrovascular accident in 04/2015. 2. Right hemiparesis. 3. Diabetes type 2. 4. Hypertension. 5. History of chronic renal failure. PAST SURGICAL HISTORY: Significant for, 1. Appendectomy. 2. Total abdominal hysterectomy. 3. Tonsillectomy. CURRENT MEDICATIONS: 1. Tylenol 650 mg one tablet p.o. q.4 hours p.r.n. 2. Enteric-coated aspirin 81 mg one tablet p.o. daily. 3. Lipitor 20 mg one tablet p.o. daily. 4. Clonidine 0.2 mg one tablet p.o. q.4 hours p.r.n. 5. Diltiazem 60 mg one tablet p.o. daily. 6. Diltiazem 30 mg one tablet p.o. q.8 hours. 7. NovoLog sliding scale. 8. Ativan 0.5 mg p.o. q.6 hours. 9. Starlix 60 mg one tablet p.o. 3 times daily. 10. Zofran 4 mg one tablet p.o. q.6 hours p.r.n. 11. Coumadin 3 mg one tablet p.o. daily. ALLERGIES: No known drug allergies. SOCIAL HISTORY: The patient is single. The patient has 2 adult sons. The patient's sister is present at bedside who is providing much of the history and physical. The patient denies tobacco or alcohol use. REVIEW OF SYSTEMS: Constitutional: The patient denies weight loss or weight gain. The patient denies fevers or chills. HEENT: The patient denies ear or throat pain. The patient denies headache. Cardiovascular: The patient denies palpitations or chest pain. Chest: The patient complains of shortness of breath. The patient complains of a nonproductive cough. The patient denies wheezes. Abdomen: The patient denies nausea, vomiting, diarrhea, or constipation. Genitourinary: The patient denies dysuria or increased frequency of urination. Neuromuscular: The patient denies seizures or generalized weakness. PHYSICAL EXAMINATION: VITAL SIGNS: Temperature is 96.8 degrees, respirations 19, pulse 81, and blood pressure 166/82. GENERAL: The patient is a well-developed, well-nourished, female, in no apparent distress. HEENT: Eyes, pupils are equal and responsive to light and accommodation. Extraocular movements intact. NECK: Supple without lymphadenopathy. CHEST: Few scattered rales at bilateral bases. Otherwise, clear to auscultation bilaterally without wheezes. ABDOMEN: Soft, nontender, and nondistended. Positive bowel sounds. No evidence of hepatosplenomegaly. Currently, no rebound or guarding. EXTREMITIES: No clubbing, cyanosis, or edema. RECTAL/GENITAL: Refused. NEUROLOGIC: The patient does have a right 2/5 motor strength compared to the left. Otherwise, motor strength is 5/5 bilaterally. Deep tendon reflexes are 2+ plantar. LABORATORY STUDIES: WBC 14.2, hemoglobin 13.4, hematocrit 41.2, and platelets 283,000. Sodium 131, potassium 5.9, chloride 89, CO2 21, BUN 46, and creatinine 2.1. Glucose is 242. Chest x-ray is pending. ASSESSMENT: This is an 80-year-old female. 1. Shortness of breath. 2. Renal failure. 3. Hypertension. 4. Congestive heart failure. 5. Atrial fibrillation. 6. Cerebrovascular disease. 7. Right hemiparesis. 8. Hypercholesterolemia. 9. Diabetes type 2. TREATMENT: 1. Shortness of breath. This may be secondary to pneumonia versus congestive heart failure. A Cardiology consultation was obtained with Dr. Serjio San. A Pulmonary consultation was obtained with Dr. Mott. The patient has been placed empirically on cefepime for possible pneumonia. An Infectious disease consultation was obtained with Dr. Stone. 2. Renal failure. This is acute on chronic. The patient is currently dehydrated. The patient is receiving intravenous fluids. A Nephrology consultation is pending. 3. Hypertension. Continue diltiazem and clonidine as above. 4. History of atrial fibrillation. A Cardiology consultation was obtained with Dr. Serjio San. The patient is currently on Coumadin. 5. Congestive heart failure. An echocardiogram is pending. A Cardiology consultation was obtained with Dr. Serjio San. 6. Right hemiparesis. 7. Hypercholesterolemia. Continue Lipitor as above. 8. Diabetes type 2. Continue NovoLog sliding scale. Vladimir Shelby M.D. DR: QUE JOB#: [id number] CC:
--- NOTE | 2016-03-27 22:18 | Consultation ---
DATE OF CONSULTATION: INCOMPLETE DICTATION CARDIOLOGY CONSULTATION: Serjio San M.D. DR: Diana JOB#: [id number] CC:
[2016-03-28 00:16] VITALS: BP 133/52
--- NOTE | 2016-03-28 02:48 | Consultation ---
DATE OF CONSULTATION: 03/27/2016 CARDIOLOGY CONSULTATION CONSULTING PHYSICIAN: Serjio San M.D. REFERRING PHYSICIAN: Hasmukh Cope M.D. REASON FOR CONSULTATION: Recurrence of atrial flutter and hypertension. HISTORY OF PRESENT ILLNESS: The patient is a very pleasant 80-year-old lady I am quite familiar with from her previous admission less than a month ago. The patient has a history of hypertension and atrial fibrillation with rapid ventricular response for which she was on Cardizem, heparin drip, and Coumadin on the previous admission. The patient also ventricular bradycardia digoxin. The patient also has history of renal failure, sepsis, and encephalopathy. The patient was brought to the emergency room for her recurrence of her symptoms due to the atrial fibrillation. The patient also has shortness of breath and hypertensive emergency, blood pressure 230s. At the time of my evaluation, the patient denies any chest pain, palpitation, or shortness of breath. The patient's sister is at the bedside. REVIEW OF SYSTEMS: Negative other what was mentioned in the history of present illness. PAST MEDICAL HISTORY: 1. Hypertension. 2. Atrial fibrillation. 3. Hyperlipidemia. 4. History of respiratory failure. SOCIAL HISTORY: She [place] [facility] [place]. She is Do Not Resuscitate. FAMILY HISTORY: Noncontributory. PHYSICAL EXAMINATION: VITAL SIGNS: Blood pressure is 134/70, pulse 100, respirations 18, temperature 98. HEAD AND NECK: Shows no JVD. LUNGS: Coarse rhonchi. CARDIOVASCULAR: Regular S1 and S2 with no gallop or murmur. ABDOMEN: Soft and nontender. EXTREMITIES: No pitting edema. LABORATORY DATA: White count 14.2, hemoglobin 13.4, hematocrit 41.2. His sodium 131, potassium 5.9, BUN of 46 and creatinine 2.1, glucose 242. Troponin is negative. ASSESSMENT AND PLAN: 1. Atrial flutter. We will continue rate control with Cardizem 60 mg a day q. 6 h. I will start the patient on the Coumadin for her anticoagulation. Her INR is therapeutic at 2.1. 2. Hypertension. Continue Cardizem. 3. Shortness of breath and cough, possible pneumonia, on antibiotics. 4. Cerebrovascular accident x2 in 2005. 5. Hypothyroidism. 6. Renal failure. 7. . 8. Do not resuscitate. Thank you very much, Dr. Cope, for allowing me to participate in the care of this patient. Please do not hesitate to contact me for any questions regarding my evaluation. The case was discussed with Dr. Mott and Dr. Shelby as well. Serjio San M.D. DR: Lisa JOB#: [id number] CC:
[2016-03-28 04:59] VITALS: BP 109/55
[2016-03-28 05:39] LABS: MEAN CORPUSCULAR HEMOGLOBIN 31.5 PG (27.0-31.0); MEAN CORPUSCULAR HGB CONC 33.4 G/DL (32.0-36.0); MEAN CORPUSCULAR VOLUME 94 FL (80-99); MEAN PLATELET VOLUME 6.9 FL (6.5-10.1); PLATELET COUNT 198 K/UL (150-450); RED BLOOD COUNT 3.12 M/UL (4.20-5.40); RED CELL DISTRIBUTION WIDTH 14.5 % (11.6-14.8)
[2016-03-28 05:49] LABS: INR 2.7 (0.9-1.1); PROTHROMBIN TIME 28.1 SEC (9.30-11.50)
[2016-03-28 05:55] LABS: WHITE BLOOD COUNT 23.5 K/UL (4.8-10.8)
[2016-03-28 06:14] LABS: TROPONIN I < 0.30 ng/mL (<=0.30)
[2016-03-28 06:17] LABS: ALANINE AMINOTRANSFERASE 17 U/L (3-33); ALBUMIN/GLOBULIN RATIO 0.6 (1.0-2.7); ANION GAP 16 (5-15); ASPARTATE AMINO TRANSFERASE 16 U/L (5-40); CARBON DIOXIDE 26 mEQ/L (20-30); CHLORIDE 97 mEQ/L (98-107); CHOLESTEROL 157 mg/dL (< 200); CHOLESTEROL/HDL RATIO 5.2 (3.3-4.4); HEMOLYSIS 1; LDL CHOLESTEROL (CALC.) 95 mg/dL (60-99); SODIUM 139 mEQ/L (135-145); TOTAL PROTEIN 7.1 g/dL (6.6-8.7)
[2016-03-28] MEDS: NovoLOG Insulin Flexpen SUBQ SCH ×4 (06:21→21:49)
[2016-03-28 06:30] LABS: POTASSIUM 2.7 mEQ/L (3.4-4.9)
--- NOTE | 2016-03-28 07:38 | Infectious Diseases Prog Note ---
Assessment/Plan Assessment/Plan A: GNR bacteremia 2/4 - C&S pending Probable Pna - CXR pending Cough ( Dry ) and SOB GNR UTI - C&S pending, recent E.aerogenes, S.viridans Loose stools r/o C.difficile with recent ABX exposure Severe sepsis - improved lactic acidosis Leukocytosis - worse, afebrile JOYA - worse Acute anemia CVA x 2 in 2016 MRSA colonized Chemical code only P: broaden Cefepime d# 2 to invanz d# 1 ( risk inducible resistance with E.aerogenes, worsening leukocyosis ), add empiric flagyl d# 1 check C.difficile f/u cultures, adjust ABX accordingly Monitor CBC Monitor BMP Monitor C- Xray Subjective Allergies: Coded Allergies: No Known Allergies (Unverified , 02/11/16) Subjective remains afebrile. WBC up cultures noted Objective Vital Signs Last 24 Hour Vital Signs Date Time Temp Pulse Resp B/P Pulse Ox O2 Delivery O2 Flow Rate FiO2 03/28/16 06:24 83 110/58 03/28/16 05:00 106/52 03/28/16 04:59 98.1 89 19 109/55 94 Nasal Cannula 03/28/16 04:00 86 03/28/16 00:55 99/52 03/28/16 00:22 97.7 03/28/16 00:16 97.7 103 19 133/52 94 Room Air 5.0 03/28/16 00:00 103 03/27/16 21:14 104 130/98 03/27/16 20:46 106/45 03/27/16 20:00 97.8 104 28 130/101 97 Nasal Cannula 3.0 03/27/16 20:00 81 03/27/16 17:00 106/45 03/27/16 16:00 91 03/27/16 16:00 98.1 95 14 106/45 96 03/27/16 15:01 135/70 03/27/16 12:00 101 03/27/16 12:00 97.9 101 20 135/70 97 Nasal Cannula 2.0 03/27/16 08:23 78 03/27/16 08:11 98.2 75 18 161/70 99 Nasal Cannula 2.0 28 03/27/16 08:00 96.8 81 19 166/82 97 Nasal Cannula 2.0 03/27/16 07:35 75 18 161/70 99 Nasal Cannula 2.0 Height (Feet): 5 Height (Inches): 3.00 Weight (Pounds): 150 General Appearance: no acute distress Respiratory/Chest: no respiratory distress Cardiovascular: normal rate, regular rhythm Abdomen: normal bowel sounds, soft, non tender, non distended Microbiology Date/Time Source Procedure Growth Status 03/26/16 18:50 Blood Blood Culture - Preliminary Gram Negative Aj Resulted 03/26/16 18:30 Blood Blood Culture - Preliminary NO GROWTH AFTER 24 HOURS Resulted 03/26/16 19:33 Nasal Nares MRSA Culture - Final Staphylococcus Aureus - Mrsa Complete 03/26/16 19:33 Urine,Clean Catch Urine Culture - Preliminary Gram Negative Aj Resulted Laboratory Tests Test 03/27/16 17:30 03/28/16 04:35 Prothrombin Time 33.9 SEC (9.30-11.50) H 28.1 SEC (9.30-11.50) H Prothromb Time International Ratio 3.2 (0.9-1.1) H 2.7 (0.9-1.1) H White Blood Count 23.5 K/UL (4.8-10.8) #*H Red Blood Count 3.12 M/UL (4.20-5.40) L Hemoglobin 9.8 G/DL (12.0-16.0) L Hematocrit 29.4 % (37.0-47.0) L Mean Corpuscular Volume 94 FL (80-99) Mean Corpuscular Hemoglobin 31.5 PG (27.0-31.0) H Mean Corpuscular Hemoglobin Concent 33.4 G/DL (32.0-36.0) Red Cell Distribution Width 14.5 % (11.6-14.8) Platelet Count 198 K/UL (150-450) Mean Platelet Volume 6.9 FL (6.5-10.1) Neutrophils (%) (Auto) % (45.0-75.0) Lymphocytes (%) (Auto) % (20.0-45.0) Monocytes (%) (Auto) % (1.0-10.0) Eosinophils (%) (Auto) % (0.0-3.0) Basophils (%) (Auto) % (0.0-2.0) Neutrophils % (Manual) Pending Lymphocytes % (Manual) Pending Platelet Estimate Pending Platelet Morphology Pending Sodium Level 139 mEQ/L (135-145) Potassium Level 2.7 mEQ/L (3.4-4.9) #*L Chloride Level 97 mEQ/L (98-107) L Carbon Dioxide Level 26 mEQ/L (20-30) Anion Gap 16 (5-15) H Blood Urea Nitrogen 56 mg/dL (7-23) H Creatinine 3.0 mg/dL (0.5-0.9) H Estimat Glomerular Filtration Rate mL/min (>60) Glucose Level 254 mg/dL (74-106) H Calcium Level 8.0 mg/dL (8.6-10.2) #L Total Bilirubin 0.5 mg/dL (0.0-1.2) Aspartate Amino Transf (AST/SGOT) 16 U/L (5-40) Alanine Aminotransferase (ALT/SGPT) 17 U/L (3-33) Alkaline Phosphatase 99 U/L (35-104) Troponin I < 0.30 ng/mL (<=0.30) Pro-B-Type Natriuretic Peptide 26699 pg/mL (0-450) H Total Protein 7.1 g/dL (6.6-8.7) Albumin 2.8 g/dL (3.5-5.2) L Globulin 4.3 g/dL Albumin/Globulin Ratio 0.6 (1.0-2.7) L Triglycerides Level 161 mg/dL (< 150) H Cholesterol Level 157 mg/dL (< 200) LDL Cholesterol 95 mg/dL (60-99) HDL Cholesterol 30 mg/dL (> 60) Cholesterol/HDL Ratio 5.2 (3.3-4.4) H Thyroid Stimulating Hormone (TSH) 30.150 uIU/mL (0.300-4.500) Current Medications Medications (Trade) Dose Ordered Sig/Matteo Route PRN Reason Start Time Stop Time Status Last Admin Dose Admin Acetaminophen (Tylenol) 650 mg Q4H PRN ORAL fever 03/27/16 12:00 04/26/16 11:59 Al Hydroxide/Mg Hydroxide (Mylanta II) 30 ml Q6H PRN ORAL dyspepsia 03/27/16 12:00 04/26/16 11:59 Aspirin (Ecotrin) 81 mg EVERY OTHER DAY ORAL 03/29/16 09:00 04/28/16 08:59 Atorvastatin Calcium (Lipitor) 10 mg BEDTIME ORAL 03/27/16 21:00 04/26/16 20:59 03/27/16 20:46 Cefepime HCl/ Dextrose (Maxipime/D5W 50ml) 50 ml @ 100 mls/hr Q24H IVPB 03/27/16 17:30 04/03/16 17:29 03/27/16 17:46 Clonidine HCl (Catapres) 0.1 mg EVERY 4 HOURS ORAL 03/27/16 15:00 04/26/16 14:59 03/27/16 15:01 Dextrose (Dextrose 50%) STAT PRN IV Hypoglycemia 03/27/16 12:00 04/26/16 11:59 Diltiazem HCl (Cardizem) 90 mg EVERY 8 HOURS ORAL 03/27/16 22:00 04/26/16 21:59 03/28/16 06:24 Enalaprilat 2.5 mg 2.5 mg Q4H PRN IV sbp more than 200 03/27/16 12:00 04/26/16 11:59 Hydralazine HCl (Apresoline) 20 mg Q4H PRN IV sbp more than 160 03/27/16 12:00 04/26/16 11:59 Insulin Aspart BEFORE MEALS AND HS SUBQ 03/27/16 13:30 04/26/16 13:29 03/28/16 06:21 Labetalol HCl (Normodyne) 20 mg Q1H PRN IV sbp more than 180 03/27/16 12:00 04/26/16 11:59 Lorazepam (Ativan 2mg/ml 1ml) 0.5 mg Q4H PRN IV For Anxiety 03/27/16 12:00 04/03/16 11:59 Morphine Sulfate (Morphine Sulfate) 1 mg Q4H PRN IVP for severe pain 03/27/16 12:00 04/03/16 11:59 03/27/16 23:52 Nateglinide (Starlix) 60 mg THREE TIMES A DAY ORAL 03/27/16 18:00 04/26/16 17:59 03/27/16 17:46 Ondansetron HCl (Zofran) 4 mg Q6H PRN IVP Nausea & Vomiting 03/27/16 12:00 04/26/16 11:59 Polyethylene Glycol (Miralax) 17 gm HSPRN PRN ORAL Constipation 03/27/16 12:00 04/26/16 11:59 Sodium Chloride (Sodium Chloride 1000ml bag) 1,000 ml @ 100 mls/hr Q10H IV 03/27/16 15:45 04/26/16 15:44 03/27/16 22:21 Vitamin A/Vitamin D (A & D Oint) 1 applic EVERY 12 HOURS TOPIC 03/27/16 21:00 04/26/16 20:59 03/27/16 20:52 Warfarin Sodium (Coumadin per pharmacy) 1 ea DAILY PRN MISC Per rx protocol 03/27/16 16:45 04/26/16 16:44 Zolpidem Tartrate (Ambien) 5 mg HSPRN PRN ORAL Insomnia 03/27/16 12:00 04/26/16 11:59 SERA FORREST Mar 28, 2016 07:38
[2016-03-28 08:00] VITALS: BP 100/55
[2016-03-28] MEDS: Vitamin A&D Oint 2oz Tube TOPIC SCH ×2 (08:09→21:48)
[2016-03-28] MEDS: Nateglinide 60mg tab ORAL SCH ×3 (08:10→19:35)
[2016-03-28] MEDS ORDERED: Imdur 30mg tab ORAL SCH (09:00)
[2016-03-28 09:13] LABS: BAND NEUTROPHILS % (MANUAL) 20 % (0-8); LYMPHOCYTES % (MANUAL) 5 % (20-45); NEUTROPHILS % (MANUAL) 65 % (45-75); TOTAL CELLS COUNTED 100
[2016-03-28 09:25] LABS: HYPOCHROMASIA 2+
[2016-03-28 09:26] LABS: ANISOCYTOSIS 1+; BASOPHILS % (MANUAL) 0 % (0-2); EOSINOPHILS % (MANUAL) 0 % (0-3); PLATELET ESTIMATE ADEQUATE; PLATELET MORPHOLOGY NORMAL
[2016-03-28] MEDS: metroNIDAZOLE 500mg 100 ML IVPB SCH ×3 (09:29→21:47)
--- NOTE | 2016-03-28 11:24 | Pulmonology Progress Note ---
Assessment/Plan Problems: (1) Gram-negative bacteremia (2) Sepsis (3) Hypertensive urgency, malignant (4) Acute encephalopathy (5) ATN (acute tubular necrosis) (6) long term resident (7) Diabetes mellitus (8) DNR (do not resuscitate) Respiratory: monitor respiratory rate Cardiac: continue to monitor HR/BP Renal: F/U I&O Infectious Disease: check cultures Gastrointestinal: continue feedings/current rate Endocrine: monitor blood sugar, continue sliding scale insulin Hematologic: monitor H/H, transfuse if hgb<8.5 Neurologic: PRN Ativan, PRN Morphine, keep patient comfortable Affect: PRN ativan Notes Reviewed: hourly shift, cardio, renal Discussed with: nurses, consultants, corrections caseworker Subjective ROS Limited/Unobtainable: No Interval Events: c/o epigastric pain Allergies: Coded Allergies: No Known Allergies (Unverified , 02/11/16) Objective Last 24 Hour Vital Signs Date Time Temp Pulse Resp B/P Pulse Ox O2 Delivery O2 Flow Rate FiO2 03/28/16 08:10 100/55 03/28/16 08:00 97.9 77 20 100/55 98 Nasal Cannula 4.0 03/28/16 08:00 75 03/28/16 06:24 83 110/58 03/28/16 05:00 106/52 03/28/16 04:59 98.1 89 19 109/55 94 Nasal Cannula 03/28/16 04:00 86 03/28/16 00:55 99/52 03/28/16 00:22 97.7 03/28/16 00:16 97.7 103 19 133/52 94 Room Air 5.0 03/28/16 00:00 103 03/27/16 21:14 104 130/98 03/27/16 20:46 106/45 03/27/16 20:00 97.8 104 28 130/101 97 Nasal Cannula 3.0 03/27/16 20:00 81 03/27/16 17:00 106/45 03/27/16 16:00 91 03/27/16 16:00 98.1 95 14 106/45 96 03/27/16 15:01 135/70 03/27/16 12:00 101 03/27/16 12:00 97.9 101 20 135/70 97 Nasal Cannula 2.0 Intake and Output 03/27/16 03/28/16 19:00 07:00 Intake Total 300 ml 1378 ml Output Total 1000 ml 650 ml Balance -700 ml 728 ml Intake Oral 200 ml 200 ml IV Total 100 ml 1178 ml Output Urine Total 1000 ml 650 ml # Bowel Movements 2 1 General Appearance: WD/WN HEENT: normocephalic Respiratory/Chest: chest wall non-tender, normal breath sounds Cardiovascular: normal peripheral pulses, normal rate Abdomen: normal bowel sounds, soft, non tender Extremities: no cyanosis Skin: no rash Neurologic/Psychiatric: social media developer II-XII grossly normal Lymphatic: no neck adenopathy Microbiology Date/Time Source Procedure Growth Status 03/26/16 18:50 Blood Blood Culture - Preliminary Gram Negative Aj Resulted 03/26/16 18:30 Blood Blood Culture - Preliminary NO GROWTH AFTER 24 HOURS Resulted 03/26/16 19:33 Nasal Nares MRSA Culture - Final Staphylococcus Aureus - Mrsa Complete 03/26/16 19:33 Urine,Clean Catch Urine Culture - Preliminary Gram Negative Aj Resulted Laboratory Tests 03/27/16 17:30: Prothrombin Time 33.9H, Prothromb Time International Ratio 3.2H 03/28/16 04:35: Prothrombin Time 28.1H, Prothromb Time International Ratio 2.7H, White Blood Count 23.5#*H, Red Blood Count 3.12L, Hemoglobin 9.8L, Hematocrit 29.4L, Mean Corpuscular Volume 94, Mean Corpuscular Hemoglobin 31.5H, Mean Corpuscular Hemoglobin Concent 33.4, Red Cell Distribution Width 14.5, Platelet Count 198, Mean Platelet Volume 6.9, Neutrophils (%) (Auto) , Lymphocytes (%) (Auto) , Monocytes (%) (Auto) , Eosinophils (%) (Auto) , Basophils (%) (Auto) , Differential Total Cells Counted 100, Neutrophils % (Manual) 65, Lymphocytes % ( Manual) 5L, Monocytes % (Manual) 10, Eosinophils % (Manual) 0, Basophils % ( Manual) 0, Band Neutrophils 20H, Platelet Estimate Adequate, Platelet Morphology Normal, Hypochromasia 2+, Anisocytosis 1+, Sodium Level 139, Potassium Level 2.7#*L, Chloride Level 97L, Carbon Dioxide Level 26, Anion Gap 16H, Blood Urea Nitrogen 56H, Creatinine 3.0H, Estimat Glomerular Filtration Rate , Glucose Level 254H, Calcium Level 8.0#L, Total Bilirubin 0.5, Aspartate Amino Transf (AST/SGOT) 16, Alanine Aminotransferase (ALT/SGPT) 17, Alkaline Phosphatase 99, Troponin I < 0.30, Pro-B-Type Natriuretic Peptide 09197O, Total Protein 7.1, Albumin 2.8L, Globulin 4.3, Albumin/Globulin Ratio 0.6L, Triglycerides Level 161H, Cholesterol Level 157, LDL Cholesterol 95, HDL Cholesterol 30, Cholesterol/HDL Ratio 5.2H, Thyroid Stimulating Hormone (TSH) 30.150H Current Medications Medications (Trade) Dose Ordered Sig/Matteo Route PRN Reason Start Time Stop Time Status Last Admin Dose Admin Acetaminophen (Tylenol) 650 mg Q4H PRN ORAL fever 03/27/16 12:00 04/26/16 11:59 Al Hydroxide/Mg Hydroxide (Mylanta II) 30 ml Q6H PRN ORAL dyspepsia 03/27/16 12:00 04/26/16 11:59 Aspirin (Ecotrin) 81 mg EVERY OTHER DAY ORAL 03/29/16 09:00 04/28/16 08:59 Atorvastatin Calcium (Lipitor) 10 mg BEDTIME ORAL 03/27/16 21:00 04/26/16 20:59 03/27/16 20:46 Clonidine HCl (Catapres) 0.1 mg EVERY 4 HOURS ORAL 03/27/16 15:00 04/26/16 14:59 03/27/16 15:01 Dextrose (Dextrose 50%) STAT PRN IV Hypoglycemia 03/27/16 12:00 04/26/16 11:59 Diltiazem HCl (Cardizem) 90 mg EVERY 8 HOURS ORAL 03/27/16 22:00 04/26/16 21:59 03/28/16 06:24 Enalaprilat 2.5 mg 2.5 mg Q4H PRN IV sbp more than 200 03/27/16 12:00 04/26/16 11:59 Ertapenem 0.5 gm/ Sodium Chloride 50 ml @ 100 mls/hr Q24H IVPB 03/28/16 09:00 04/02/16 08:59 03/28/16 09:30 Hydralazine HCl (Apresoline) 20 mg Q4H PRN IV sbp more than 160 03/27/16 12:00 04/26/16 11:59 Insulin Aspart (NovoLOG) BEFORE MEALS AND HS SUBQ 03/27/16 13:30 04/26/16 13:29 03/28/16 06:21 Labetalol HCl (Normodyne) 20 mg Q1H PRN IV sbp more than 180 03/27/16 12:00 04/26/16 11:59 Lorazepam (Ativan 2mg/ml 1ml) 0.5 mg Q4H PRN IV For Anxiety 03/27/16 12:00 04/03/16 11:59 Metronidazole (Flagyl) 100 ml @ 100 mls/hr Q8HR IVPB 03/28/16 09:00 04/04/16 08:59 03/28/16 09:29 Morphine Sulfate (Morphine Sulfate) 1 mg Q4H PRN IVP for severe pain 03/27/16 12:00 04/03/16 11:59 03/27/16 23:52 Nateglinide (Starlix) 60 mg THREE TIMES A DAY ORAL 03/27/16 18:00 04/26/16 17:59 03/27/16 17:46 Ondansetron HCl (Zofran) 4 mg Q6H PRN IVP Nausea & Vomiting 03/27/16 12:00 04/26/16 11:59 Polyethylene Glycol (Miralax) 17 gm HSPRN PRN ORAL Constipation 03/27/16 12:00 04/26/16 11:59 Sodium Chloride (Sodium Chloride 1000ml bag) 1,000 ml @ 100 mls/hr Q10H IV 03/27/16 15:45 04/26/16 15:44 03/28/16 08:18 Vitamin A/Vitamin D (A & D Oint) 1 applic EVERY 12 HOURS TOPIC 03/27/16 21:00 04/26/16 20:59 03/28/16 08:09 Warfarin Sodium 1 ea 1 ea DAILY PRN MISC Per rx protocol 03/27/16 16:45 04/26/16 16:44 Zolpidem Tartrate (Ambien) 5 mg HSPRN PRN ORAL Insomnia 03/27/16 12:00 04/26/16 11:59 AUDIE MAY Mar 28, 2016 11:24
[2016-03-28 11:32] VITALS: BP 114/59
--- NOTE | 2016-03-28 14:27 | Internal Med Progress Note ---
Subjective Date of Service: Mar 28, 2016 Physician Name Lord,Emely Attending Physician Hasmukh Cope MD Current Medications Medications (Trade) Dose Ordered Sig/Matteo Route PRN Reason Start Time Stop Time Status Last Admin Dose Admin Acetaminophen (Tylenol) 650 mg Q4H PRN ORAL fever 03/27/16 12:00 04/26/16 11:59 Al Hydroxide/Mg Hydroxide (Mylanta II) 30 ml Q6H PRN ORAL dyspepsia 03/27/16 12:00 04/26/16 11:59 Aspirin (Ecotrin) 81 mg EVERY OTHER DAY ORAL 03/29/16 09:00 04/28/16 08:59 Atorvastatin Calcium (Lipitor) 10 mg BEDTIME ORAL 03/27/16 21:00 04/26/16 20:59 03/27/16 20:46 Clonidine HCl (Catapres) 0.1 mg EVERY 4 HOURS ORAL 03/27/16 15:00 04/26/16 14:59 03/28/16 13:03 Dextrose (Dextrose 50%) STAT PRN IV Hypoglycemia 03/27/16 12:00 04/26/16 11:59 Diltiazem HCl (Cardizem) 90 mg EVERY 8 HOURS ORAL 03/27/16 22:00 04/26/16 21:59 03/28/16 13:40 Enalaprilat 2.5 mg 2.5 mg Q4H PRN IV sbp more than 200 03/27/16 12:00 04/26/16 11:59 Ertapenem 0.5 gm/ Sodium Chloride 50 ml @ 100 mls/hr Q24H IVPB 03/28/16 09:00 04/02/16 08:59 03/28/16 09:30 Hydralazine HCl (Apresoline) 20 mg Q4H PRN IV sbp more than 160 03/27/16 12:00 04/26/16 11:59 Insulin Aspart (NovoLOG) BEFORE MEALS AND HS SUBQ 03/27/16 13:30 04/26/16 13:29 03/28/16 11:40 Labetalol HCl (Normodyne) 20 mg Q1H PRN IV sbp more than 180 03/27/16 12:00 04/26/16 11:59 Lorazepam (Ativan 2mg/ml 1ml) 0.5 mg Q4H PRN IV For Anxiety 03/27/16 12:00 04/03/16 11:59 Metronidazole 100 ml @ 100 mls/hr Q8HR IVPB 03/28/16 09:00 04/04/16 08:59 03/28/16 13:39 Morphine Sulfate (Morphine Sulfate) 1 mg Q4H PRN IVP for severe pain 03/27/16 12:00 04/03/16 11:59 03/27/16 23:52 Nateglinide (Starlix) 60 mg THREE TIMES A DAY ORAL 03/27/16 18:00 04/26/16 17:59 03/28/16 13:03 Ondansetron HCl (Zofran) 4 mg Q6H PRN IVP Nausea & Vomiting 03/27/16 12:00 04/26/16 11:59 Polyethylene Glycol (Miralax) 17 gm HSPRN PRN ORAL Constipation 03/27/16 12:00 04/26/16 11:59 Potassium Chloride (KCl 10mEq/100ml Premix) 100 ml @ 100 mls/hr Q1H IVPB 03/28/16 11:30 03/28/16 17:29 03/28/16 13:39 Sodium Chloride (Sodium Chloride 1000ml bag) 1,000 ml @ 100 mls/hr Q10H IV 03/27/16 15:45 04/26/16 15:44 03/28/16 08:18 Vitamin A/Vitamin D (A & D Oint) 1 applic EVERY 12 HOURS TOPIC 03/27/16 21:00 04/26/16 20:59 03/28/16 08:09 Warfarin Sodium (Coumadin) 1.5 mg COUMADIN ORAL 03/28/16 17:00 04/02/16 16:59 Warfarin Sodium 1 ea 1 ea DAILY PRN MISC Per rx protocol 03/27/16 16:45 04/26/16 16:44 Zolpidem Tartrate (Ambien) 5 mg HSPRN PRN ORAL Insomnia 03/27/16 12:00 04/26/16 11:59 Allergies: Coded Allergies: No Known Allergies (Unverified , 02/11/16) ROS Limited/Unobtainable: Yes Subjective Cover for Int Med-Dr Cope. AFSHAN Objective Last Vital Signs Date Time Temp Pulse Resp B/P Pulse Ox O2 Delivery O2 Flow Rate FiO2 03/28/16 13:40 84 131/59 03/28/16 11:32 98.1 20 98 Nasal Cannula 4.0 03/27/16 08:11 28 General Appearance: WD/WN, no apparent distress, alert EENT: PERRL/EOMI, normal ENT inspection Neck: non-tender, normal alignment, supple, normal inspection Cardiovascular: normal peripheral pulses, normal rate, regular rhythm, no gallop/murmur, no JVD Respiratory/Chest: chest wall non-tender, no respiratory distress, no accessory muscle use, crackles/rales, rhonchi - bilaterally, expiratory wheezing Abdomen: normal bowel sounds, non tender, soft, no organomegaly, no mass, abnormal bowel sounds Extremities: normal range of motion 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, other - right hemiparesis Skin: normal pigmentation, warm/dry Laboratory Tests Test 03/27/16 17:30 03/28/16 04:35 Prothrombin Time 33.9 SEC (9.30-11.50) H 28.1 SEC (9.30-11.50) H Prothromb Time International Ratio 3.2 (0.9-1.1) H 2.7 (0.9-1.1) H White Blood Count 23.5 K/UL (4.8-10.8) #*H Red Blood Count 3.12 M/UL (4.20-5.40) L Hemoglobin 9.8 G/DL (12.0-16.0) L Hematocrit 29.4 % (37.0-47.0) L Mean Corpuscular Volume 94 FL (80-99) Mean Corpuscular Hemoglobin 31.5 PG (27.0-31.0) H Mean Corpuscular Hemoglobin Concent 33.4 G/DL (32.0-36.0) Red Cell Distribution Width 14.5 % (11.6-14.8) Platelet Count 198 K/UL (150-450) Mean Platelet Volume 6.9 FL (6.5-10.1) Neutrophils (%) (Auto) % (45.0-75.0) Lymphocytes (%) (Auto) % (20.0-45.0) Monocytes (%) (Auto) % (1.0-10.0) Eosinophils (%) (Auto) % (0.0-3.0) Basophils (%) (Auto) % (0.0-2.0) Differential Total Cells Counted 100 Neutrophils % (Manual) 65 % (45-75) Lymphocytes % (Manual) 5 % (20-45) L Monocytes % (Manual) 10 % (1-10) Eosinophils % (Manual) 0 % (0-3) Basophils % (Manual) 0 % (0-2) Band Neutrophils 20 % (0-8) H Platelet Estimate Adequate Platelet Morphology Normal Hypochromasia 2+ Anisocytosis 1+ Sodium Level 139 mEQ/L (135-145) Potassium Level 2.7 mEQ/L (3.4-4.9) #*L Chloride Level 97 mEQ/L (98-107) L Carbon Dioxide Level 26 mEQ/L (20-30) Anion Gap 16 (5-15) H Blood Urea Nitrogen 56 mg/dL (7-23) H Creatinine 3.0 mg/dL (0.5-0.9) H Estimat Glomerular Filtration Rate mL/min (>60) Glucose Level 254 mg/dL (74-106) H Calcium Level 8.0 mg/dL (8.6-10.2) #L Total Bilirubin 0.5 mg/dL (0.0-1.2) Aspartate Amino Transf (AST/SGOT) 16 U/L (5-40) Alanine Aminotransferase (ALT/SGPT) 17 U/L (3-33) Alkaline Phosphatase 99 U/L (35-104) Troponin I < 0.30 ng/mL (<=0.30) Pro-B-Type Natriuretic Peptide 07413 pg/mL (0-450) H Total Protein 7.1 g/dL (6.6-8.7) Albumin 2.8 g/dL (3.5-5.2) L Globulin 4.3 g/dL Albumin/Globulin Ratio 0.6 (1.0-2.7) L Triglycerides Level 161 mg/dL (< 150) H Cholesterol Level 157 mg/dL (< 200) LDL Cholesterol 95 mg/dL (60-99) HDL Cholesterol 30 mg/dL (> 60) Cholesterol/HDL Ratio 5.2 (3.3-4.4) H Thyroid Stimulating Hormone (TSH) 30.150 uIU/mL (0.300-4.500) Microbiology Date/Time Source Procedure Growth Status 03/26/16 18:50 Blood Blood Culture - Preliminary Gram Negative Aj Resulted 03/26/16 18:30 Blood Blood Culture - Preliminary NO GROWTH AFTER 24 HOURS Resulted 03/26/16 19:33 Nasal Nares MRSA Culture - Final Staphylococcus Aureus - Mrsa Complete 03/26/16 19:33 Urine,Clean Catch Urine Culture - Preliminary Gram Negative Aj Resulted Intake and Output 03/27/16 03/28/16 19:00 07:00 Intake Total 300 ml 1378 ml Output Total 1000 ml 650 ml Balance -700 ml 728 ml Intake Oral 200 ml 200 ml IV Total 100 ml 1178 ml Output Urine Total 1000 ml 650 ml # Bowel Movements 2 1 Assessment/Plan Problem List: (1) Cerebral vascular disease (2) Right hemiparesis (3) Hypercholesterolemia (4) Leukocytosis (5) UTI (urinary tract infection) Assessment & Plan: Gram neg aj. Await ID and sens. Cont ertapenem per ID for now. (6) CHF (congestive heart failure) (7) Atrial fibrillation Assessment & Plan: See Cardiology note. (8) Gram-negative bacteremia (9) Sepsis Assessment & Plan: Gram neg aj. Await ID and sens. Cont ertapenem per ID (10) Hypertension Assessment & Plan: Cont labetelol, hydralazine and vasotec (11) Renal failure (12) Diabetes mellitus Assessment & Plan: Cont starlix and novolog Status: not improved EMELY LORD Mar 28, 2016 14:27
--- NOTE | 2016-03-28 14:37 | Diagnostic Imaging Report ---
Indication: SOB Technique: One view of the chest Comparison: Findings: There is central bronchial wall thickening and calcification. Lungs and pleural ovaries are otherwise clear. Heart size is normal. Cholecystectomy clips are again demonstrated Impression: No acute process
--- NOTE | 2016-03-28 15:16 | Cardiac Electrophysiology PN ---
Assessment/Plan Assessment/Plan 1. Atrial flutter. Continue Cardizem 90 mg q. 8 h. and Coumadin. INR is therapeutic at 2.1. 2. Hypertension. Continue Cardizem. 3. Shortness of breath and cough, possible pneumonia, on antibiotics. 4. Cerebrovascular accident x2 in 2005. 5. Hypothyroidism. 6. Renal failure. 7. Do not resuscitate. DW RN and sister at bedside. Subjective Subjective Feeling better in NAD. Objective Last 24 Hour Vital Signs Date Time Temp Pulse Resp B/P Pulse Ox O2 Delivery O2 Flow Rate FiO2 03/28/16 13:40 84 131/59 03/28/16 13:03 114/59 03/28/16 12:00 78 03/28/16 11:32 98.1 77 20 114/59 98 Nasal Cannula 4.0 03/28/16 08:10 100/55 03/28/16 08:00 97.9 77 20 100/55 98 Nasal Cannula 4.0 03/28/16 08:00 75 03/28/16 06:24 83 110/58 03/28/16 05:00 106/52 03/28/16 04:59 98.1 89 19 109/55 94 Nasal Cannula 03/28/16 04:00 86 03/28/16 00:55 99/52 03/28/16 00:22 97.7 03/28/16 00:16 97.7 103 19 133/52 94 Room Air 5.0 03/28/16 00:00 103 03/27/16 21:14 104 130/98 03/27/16 20:46 106/45 03/27/16 20:00 97.8 104 28 130/101 97 Nasal Cannula 3.0 03/27/16 20:00 81 03/27/16 17:00 106/45 03/27/16 16:00 91 03/27/16 16:00 98.1 95 14 106/45 96 Intake and Output 03/27/16 03/28/16 19:00 07:00 Intake Total 300 ml 1378 ml Output Total 1000 ml 650 ml Balance -700 ml 728 ml Intake Oral 200 ml 200 ml IV Total 100 ml 1178 ml Output Urine Total 1000 ml 650 ml # Bowel Movements 2 1 Laboratory Tests Test 03/27/16 17:30 03/28/16 04:35 Prothrombin Time 33.9 SEC (9.30-11.50) H 28.1 SEC (9.30-11.50) H Prothromb Time International Ratio 3.2 (0.9-1.1) H 2.7 (0.9-1.1) H White Blood Count 23.5 K/UL (4.8-10.8) #*H Red Blood Count 3.12 M/UL (4.20-5.40) L Hemoglobin 9.8 G/DL (12.0-16.0) L Hematocrit 29.4 % (37.0-47.0) L Mean Corpuscular Volume 94 FL (80-99) Mean Corpuscular Hemoglobin 31.5 PG (27.0-31.0) H Mean Corpuscular Hemoglobin Concent 33.4 G/DL (32.0-36.0) Red Cell Distribution Width 14.5 % (11.6-14.8) Platelet Count 198 K/UL (150-450) Mean Platelet Volume 6.9 FL (6.5-10.1) Neutrophils (%) (Auto) % (45.0-75.0) Lymphocytes (%) (Auto) % (20.0-45.0) Monocytes (%) (Auto) % (1.0-10.0) Eosinophils (%) (Auto) % (0.0-3.0) Basophils (%) (Auto) % (0.0-2.0) Differential Total Cells Counted 100 Neutrophils % (Manual) 65 % (45-75) Lymphocytes % (Manual) 5 % (20-45) L Monocytes % (Manual) 10 % (1-10) Eosinophils % (Manual) 0 % (0-3) Basophils % (Manual) 0 % (0-2) Band Neutrophils 20 % (0-8) H Platelet Estimate Adequate Platelet Morphology Normal Hypochromasia 2+ Anisocytosis 1+ Sodium Level 139 mEQ/L (135-145) Potassium Level 2.7 mEQ/L (3.4-4.9) #*L Chloride Level 97 mEQ/L (98-107) L Carbon Dioxide Level 26 mEQ/L (20-30) Anion Gap 16 (5-15) H Blood Urea Nitrogen 56 mg/dL (7-23) H Creatinine 3.0 mg/dL (0.5-0.9) H Estimat Glomerular Filtration Rate mL/min (>60) Glucose Level 254 mg/dL (74-106) H Calcium Level 8.0 mg/dL (8.6-10.2) #L Total Bilirubin 0.5 mg/dL (0.0-1.2) Aspartate Amino Transf (AST/SGOT) 16 U/L (5-40) Alanine Aminotransferase (ALT/SGPT) 17 U/L (3-33) Alkaline Phosphatase 99 U/L (35-104) Troponin I < 0.30 ng/mL (<=0.30) Pro-B-Type Natriuretic Peptide 89529 pg/mL (0-450) H Total Protein 7.1 g/dL (6.6-8.7) Albumin 2.8 g/dL (3.5-5.2) L Globulin 4.3 g/dL Albumin/Globulin Ratio 0.6 (1.0-2.7) L Triglycerides Level 161 mg/dL (< 150) H Cholesterol Level 157 mg/dL (< 200) LDL Cholesterol 95 mg/dL (60-99) HDL Cholesterol 30 mg/dL (> 60) Cholesterol/HDL Ratio 5.2 (3.3-4.4) H Thyroid Stimulating Hormone (TSH) 30.150 uIU/mL (0.300-4.500) Microbiology Date/Time Source Procedure Growth Status 03/26/16 18:50 Blood Blood Culture - Preliminary Gram Negative Aj Resulted 03/26/16 18:30 Blood Blood Culture - Preliminary NO GROWTH AFTER 24 HOURS Resulted 03/26/16 19:33 Nasal Nares MRSA Culture - Final Staphylococcus Aureus - Mrsa Complete 03/26/16 19:33 Urine,Clean Catch Urine Culture - Preliminary Gram Negative Aj Resulted Objective HEAD AND NECK: Shows no JVD. LUNGS: Coarse rhonchi. CARDIOVASCULAR: Regular S1 and S2 with no gallop or murmur. ABDOMEN: Soft and nontender. EXTREMITIES: No pitting edema. RICHARD HOWARD Mar 28, 2016 15:16
[2016-03-28] MEDS ORDERED: Tubing IV Secondary IV ONE (15:19)
[2016-03-28 16:00] VITALS: BP 134/75
[2016-03-28] MEDS ORDERED: Mylanta II UD 30ml ORAL PRN (16:00)
[2016-03-28] MEDS ORDERED: LORazepam Inj 2mg/ml 1ml IV PRN (16:00)
[2016-03-28] MEDS ORDERED: Enalaprilat 2.5mg/2ml Inj IV PRN (16:00)
[2016-03-28] MEDS ORDERED: Miralax 17gm pkt ORAL PRN (16:00)
[2016-03-28] MEDS ORDERED: Labetalol 5mg/ml 20ml vial IV PRN (16:00)
[2016-03-28] MEDS ORDERED: Warfarin Sodium 1mg ORAL SCH ×3 (17:00→19:00)
[2016-03-28] MEDS: Morphine Sulfate 2mg/ml Inj IVP PRN (18:01)
[2016-03-28 20:00] VITALS: BP 137/73
[2016-03-28] MEDS ORDERED: Zolpidem 5mg tab ORAL PRN (21:00)
[2016-03-29] VITALS (7 sets, daily range): BP systolic 97–147; BP diastolic 47–77
[2016-03-29] MEDS: Morphine Sulfate 2mg/ml Inj IVP PRN (00:11)
[2016-03-29] MEDS: metroNIDAZOLE 500mg 100 ML IVPB SCH ×3 (05:44→21:47)
[2016-03-29] MEDS: NovoLOG Insulin Flexpen SUBQ SCH ×4 (06:33→21:50)
[2016-03-29 06:37] LABS: MEAN CORPUSCULAR HEMOGLOBIN 31.5 PG (27.0-31.0); MEAN CORPUSCULAR VOLUME 95 FL (80-99); MEAN PLATELET VOLUME 6.4 FL (6.5-10.1); PLATELET COUNT 182 K/UL (150-450); RED BLOOD COUNT 3.11 M/UL (4.20-5.40); RED CELL DISTRIBUTION WIDTH 14.7 % (11.6-14.8); WHITE BLOOD COUNT 16.9 K/UL (4.8-10.8)
[2016-03-29 06:50] LABS: INR 2.5 (0.9-1.1); PROTHROMBIN TIME 26.7 SEC (9.30-11.50)
[2016-03-29 07:11] LABS: ALANINE AMINOTRANSFERASE 19 U/L (3-33); ALBUMIN/GLOBULIN RATIO 0.5 (1.0-2.7); ANION GAP 13 (5-15); ASPARTATE AMINO TRANSFERASE 18 U/L (5-40); CALCIUM 8.4 mg/dL (8.6-10.2); CARBON DIOXIDE 23 mEQ/L (20-30); CHLORIDE 104 mEQ/L (98-107); CREATININE 2.3 mg/dL (0.5-0.9); HEMOLYSIS 5; MAGNESIUM 1.8 mg/dL (1.7-2.5); PHOSPHORUS 4.1 mg/dL (2.5-4.8); POTASSIUM 4.3 mEQ/L (3.4-4.9); SODIUM 140 mEQ/L (135-145); TOTAL PROTEIN 7.4 g/dL (6.6-8.7)
[2016-03-29 08:17] LABS: ANISOCYTOSIS 1+; BAND NEUTROPHILS % (MANUAL) 10 % (0-8); BASOPHILS % (MANUAL) 0 % (0-2); EOSINOPHILS % (MANUAL) 4 % (0-3); HYPOCHROMASIA 1+; LYMPHOCYTES % (MANUAL) 6 % (20-45); NEUTROPHILS % (MANUAL) 77 % (45-75); PLATELET ESTIMATE ADEQUATE; PLATELET MORPHOLOGY NORMAL; TOTAL CELLS COUNTED 100
--- NOTE | 2016-03-29 08:58 | Infectious Diseases Prog Note ---
Assessment/Plan Assessment/Plan A: ESBL(+) E.coli bacteremia / - C&S pending Probable bronchitis - CXR: No acute process Cough ( Dry ) and SOB GNR UTI - C&S pending, recent E.aerogenes, S.viridans Loose stools r/o C.difficile with recent ABX exposure - toxin pending Severe sepsis - improved lactic acidosis Leukocytosis - improved, afebrile JOYA - improved Acute anemia - stable CVA x 2 in 2016 MRSA colonized Chemical code only P: continue invanz d# 2 / , flagyl d# 2 ( 03/28 SP Cefepime d# 2 ) f/u C.difficile f/u cultures Monitor CBC Monitor BMP Monitor C- Xray Subjective Allergies: Coded Allergies: No Known Allergies (Unverified , 02/11/16) Subjective remains afebrile. WBC improved cultures noted Objective Vital Signs Last 24 Hour Vital Signs Date Time Temp Pulse Resp B/P Pulse Ox O2 Delivery O2 Flow Rate FiO2 03/29/16 08:00 97.3 92 20 147/77 92 Nasal Cannula 2.0 03/29/16 05:44 90 150/79 03/29/16 05:43 150/79 03/29/16 04:00 97.2 74 17 135/69 96 Room Air 03/29/16 01:51 126/72 03/29/16 00:00 97.6 79 18 130/71 100 Room Air 03/28/16 21:59 90 164/84 03/28/16 21:48 137/73 03/28/16 20:00 97.2 86 19 137/73 97 Room Air 03/28/16 18:31 97.1 03/28/16 17:27 134/75 03/28/16 16:00 97.1 82 20 134/75 100 Nasal Cannula 2.0 03/28/16 13:40 84 131/59 03/28/16 13:03 114/59 03/28/16 12:00 78 03/28/16 11:32 98.1 77 20 114/59 98 Nasal Cannula 4.0 Height (Feet): 5 Height (Inches): 3.00 Weight (Pounds): 150 General Appearance: no acute distress Respiratory/Chest: no respiratory distress Cardiovascular: normal rate, regular rhythm Abdomen: normal bowel sounds, soft, non tender, non distended Microbiology Date/Time Source Procedure Growth Status 03/26/16 18:50 Blood Blood Culture - Final Escherichia Coli - Esbl Complete 03/26/16 18:30 Blood Blood Culture - Preliminary NO GROWTH AFTER 48 HOURS Resulted 03/26/16 19:33 Nasal Nares MRSA Culture - Final Staphylococcus Aureus - Mrsa Complete 03/26/16 19:33 Urine,Clean Catch Urine Culture - Preliminary Gram Negative Aj Resulted 03/26/16 19:33 Rectum VRE Culture - Final Enterococcus Faecium - Vre Complete Laboratory Tests Test 03/29/16 04:40 White Blood Count 16.9 K/UL (4.8-10.8) H Red Blood Count 3.11 M/UL (4.20-5.40) L Hemoglobin 9.8 G/DL (12.0-16.0) L Hematocrit 29.7 % (37.0-47.0) L Mean Corpuscular Volume 95 FL (80-99) Mean Corpuscular Hemoglobin 31.5 PG (27.0-31.0) H Mean Corpuscular Hemoglobin Concent 33.0 G/DL (32.0-36.0) Red Cell Distribution Width 14.7 % (11.6-14.8) Platelet Count 182 K/UL (150-450) Mean Platelet Volume 6.4 FL (6.5-10.1) L Neutrophils (%) (Auto) % (45.0-75.0) Lymphocytes (%) (Auto) % (20.0-45.0) Monocytes (%) (Auto) % (1.0-10.0) Eosinophils (%) (Auto) % (0.0-3.0) Basophils (%) (Auto) % (0.0-2.0) Differential Total Cells Counted 100 Neutrophils % (Manual) 77 % (45-75) H Lymphocytes % (Manual) 6 % (20-45) L Monocytes % (Manual) 3 % (1-10) Eosinophils % (Manual) 4 % (0-3) H Basophils % (Manual) 0 % (0-2) Band Neutrophils 10 % (0-8) H Platelet Estimate Adequate Platelet Morphology Normal Hypochromasia 1+ Anisocytosis 1+ Prothrombin Time 26.7 SEC (9.30-11.50) H Prothromb Time International Ratio 2.5 (0.9-1.1) H Sodium Level 140 mEQ/L (135-145) Potassium Level 4.3 mEQ/L (3.4-4.9) # Chloride Level 104 mEQ/L (98-107) Carbon Dioxide Level 23 mEQ/L (20-30) Anion Gap 13 (5-15) Blood Urea Nitrogen 48 mg/dL (7-23) H Creatinine 2.3 mg/dL (0.5-0.9) H Estimat Glomerular Filtration Rate mL/min (>60) Glucose Level 205 mg/dL (74-106) H Calcium Level 8.4 mg/dL (8.6-10.2) L Phosphorus Level 4.1 mg/dL (2.5-4.8) Magnesium Level 1.8 mg/dL (1.7-2.5) Total Bilirubin 0.4 mg/dL (0.0-1.2) Aspartate Amino Transf (AST/SGOT) 18 U/L (5-40) Alanine Aminotransferase (ALT/SGPT) 19 U/L (3-33) Alkaline Phosphatase 126 U/L (35-104) H Total Protein 7.4 g/dL (6.6-8.7) Albumin 2.7 g/dL (3.5-5.2) L Globulin 4.7 g/dL Albumin/Globulin Ratio 0.5 (1.0-2.7) L Current Medications Medications (Trade) Dose Ordered Sig/Matteo Route PRN Reason Start Time Stop Time Status Last Admin Dose Admin Acetaminophen (Tylenol) 650 mg Q4H PRN ORAL fever 03/28/16 16:00 04/27/16 15:59 Al Hydroxide/Mg Hydroxide (Mylanta II) 30 ml Q6H PRN ORAL dyspepsia 03/28/16 16:00 04/27/16 15:59 Aspirin (Ecotrin) 81 mg EVERY OTHER DAY ORAL 03/29/16 09:00 04/28/16 08:59 Atorvastatin Calcium (Lipitor) 10 mg BEDTIME ORAL 03/28/16 21:00 04/27/16 20:59 03/28/16 21:48 Clonidine HCl (Catapres) 0.1 mg EVERY 4 HOURS ORAL 03/28/16 17:00 04/27/16 16:59 03/29/16 05:43 Dextrose (Dextrose 50%) STAT PRN IV Hypoglycemia 03/28/16 16:00 04/27/16 15:59 Diltiazem HCl (Cardizem) 90 mg EVERY 8 HOURS ORAL 03/28/16 22:00 04/27/16 21:59 03/29/16 05:44 Enalaprilat (Vasotec) 2.5 mg Q4H PRN IV sbp more than 200 03/28/16 16:00 04/27/16 15:59 Ertapenem 0.5 gm/ Sodium Chloride 50 ml @ 100 mls/hr Q24H IVPB 03/29/16 09:00 04/04/16 08:59 Hydralazine HCl (Apresoline) 20 mg Q4H PRN IV sbp more than 160 03/28/16 16:00 04/27/16 15:59 Insulin Aspart (NovoLOG) BEFORE MEALS AND HS SUBQ 03/28/16 16:30 04/27/16 16:29 03/29/16 06:33 Labetalol HCl (Normodyne) 20 mg Q1H PRN IV sbp more than 180 03/28/16 16:00 04/27/16 15:59 Lorazepam (Ativan 2mg/ml 1ml) 0.5 mg Q4H PRN IV For Anxiety 03/28/16 16:00 04/04/16 15:59 Metronidazole 100 ml @ 100 mls/hr Q8HR IVPB 03/28/16 22:00 04/04/16 21:59 03/29/16 05:44 Morphine Sulfate (Morphine Sulfate) 1 mg Q4H PRN IVP for severe pain 03/28/16 16:00 04/04/16 15:59 03/29/16 00:11 Nateglinide (Starlix) 60 mg THREE TIMES A DAY ORAL 03/28/16 18:00 04/27/16 17:59 03/28/16 19:35 Ondansetron HCl (Zofran) 4 mg Q6H PRN IVP Nausea & Vomiting 03/28/16 16:00 04/27/16 15:59 Polyethylene Glycol (Miralax) 17 gm HSPRN PRN ORAL Constipation 03/28/16 16:00 04/27/16 15:59 Sodium Chloride (Sodium Chloride 1000ml bag) 1,000 ml @ 100 mls/hr Q10H IV 03/28/16 16:00 04/27/16 15:59 03/28/16 17:26 Vitamin A/Vitamin D (A & D Oint) 1 applic EVERY 12 HOURS TOPIC 03/28/16 21:00 04/27/16 20:59 03/28/16 21:48 Warfarin Sodium 1 ea 1 ea DAILY PRN MISC Per rx protocol 03/27/16 16:45 04/26/16 16:44 Zolpidem Tartrate (Ambien) 5 mg HSPRN PRN ORAL Insomnia 03/28/16 21:00 04/27/16 20:59 SERA FORREST Mar 29, 2016 08:58
[2016-03-29] MEDS ORDERED: Aspirin EC 81mg tab ORAL SCH (09:00)
[2016-03-29] MEDS: Nateglinide 60mg tab ORAL SCH ×3 (09:11→18:09)
[2016-03-29] MEDS: Vitamin A&D Oint 2oz Tube TOPIC SCH ×2 (09:12→21:47)
[2016-03-29] MEDS: Aspirin EC 81mg tab ORAL SCH (09:12)
[2016-03-29] MEDS: DuoNeb 0.5-3(2.5)mg/3ml neb HHN SCH ×3 (13:04→23:22)
--- NOTE | 2016-03-29 14:11 | Emergency Room Report ---
History of Present Illness General Chief Complaint: Upper Respiratory Illness Source: Patient, Family Member Present Illness Allergies: Coded Allergies: No Known Allergies (Unverified , 02/11/16) Nursing Documentation-PMH Hx Cardiac Problems: Yes - A-FLUTTER Hx Hypertension: Yes Hx Cancer: No Hx Gastrointestinal Problems: Yes - GERD Hx Cerebrovascular Accident: Yes - April 2015, first CVA 2003 Physical Exam Vital Signs Date Time Temp Pulse Resp B/P Pulse Ox O2 Delivery O2 Flow Rate FiO2 03/26/16 18:15 92 20 213/81 99 Room Air 03/26/16 18:30 98.2 03/26/16 19:52 2.0 28 Procedures CPR/Code Blue CPR/Code Blue Narrative Patient is an 80-year-old female with new-onset of altered mental status. The patient was noted to have a an adequate blood sugar. The patient was noted to have been breathing spontaneously as well as have a blood pressure of greater than 110 systolic with a heart rate in the 90s. The patient had gag reflex present and grimaced with a check of gag reflex. CPR was not performed due to present pulse.Dr. Hasmukh Cope was contacted regarding patient's condition and stat CT of the head was ordered to be followed up by Dr. Cope. Medical Decision Making Diagnostic Impression: Primary Impression: Hypertensive urgency, malignant Additional Impressions: Respiratory distress Renal failure Hyperkalemia Last Vital Signs Date Time Temp Pulse Resp B/P Pulse Ox O2 Delivery O2 Flow Rate FiO2 03/29/16 12:30 97 18 97 Non-Rebreather 15.0 100 03/29/16 09:11 147/77 03/29/16 08:00 97.3 Disposition: ADMITTED INPATIENT Condition: Critical Referrals: Hasmukh Cope MD (PCP) Ludin Doherty Mar 29, 2016 14:11
--- NOTE | 2016-03-29 16:31 | Internal Med Progress Note ---
Subjective Date of Service: Mar 29, 2016 Physician Name Emely Lord Attending Physician Hasmukh Cope MD Current Medications Medications (Trade) Dose Ordered Sig/Matteo Route PRN Reason Start Time Stop Time Status Last Admin Dose Admin Acetaminophen (Tylenol) 650 mg Q4H PRN ORAL fever 03/28/16 16:00 04/27/16 15:59 Al Hydroxide/Mg Hydroxide (Mylanta II) 30 ml Q6H PRN ORAL dyspepsia 03/28/16 16:00 04/27/16 15:59 Albuterol/ Ipratropium (DuoNeb 0.5-3(2.5)mg/3ml) 3 ml Q4HRT HHN 03/29/16 15:00 04/03/16 14:59 03/29/16 13:04 Aspirin (Ecotrin) 81 mg EVERY OTHER DAY ORAL 03/29/16 09:00 04/28/16 08:59 03/29/16 09:12 Atorvastatin Calcium (Lipitor) 10 mg BEDTIME ORAL 03/28/16 21:00 04/27/16 20:59 03/28/16 21:48 Clonidine HCl (Catapres) 0.1 mg EVERY 4 HOURS ORAL 03/28/16 17:00 04/27/16 16:59 03/29/16 09:11 Dextrose (Dextrose 50%) STAT PRN IV Hypoglycemia 03/28/16 16:00 04/27/16 15:59 Diltiazem HCl (Cardizem) 90 mg EVERY 8 HOURS ORAL 03/28/16 22:00 04/27/16 21:59 03/29/16 05:44 Enalaprilat (Vasotec) 2.5 mg Q4H PRN IV sbp more than 200 03/28/16 16:00 04/27/16 15:59 Ertapenem 0.5 gm/ Sodium Chloride 50 ml @ 100 mls/hr Q24H IVPB 03/29/16 09:00 04/04/16 08:59 03/29/16 11:12 Insulin Aspart (NovoLOG) BEFORE MEALS AND HS SUBQ 03/28/16 16:30 04/27/16 16:29 03/29/16 11:20 Lorazepam (Ativan 2mg/ml 1ml) 0.5 mg Q4H PRN IV For Anxiety 03/28/16 16:00 04/04/16 15:59 Metronidazole 100 ml @ 100 mls/hr Q8HR IVPB 03/28/16 22:00 04/04/16 21:59 03/29/16 05:44 Morphine Sulfate (Morphine Sulfate) 1 mg Q4H PRN IVP for severe pain 03/28/16 16:00 04/04/16 15:59 03/29/16 00:11 Nateglinide (Starlix) 60 mg THREE TIMES A DAY ORAL 03/28/16 18:00 04/27/16 17:59 03/29/16 09:11 Ondansetron HCl (Zofran) 4 mg Q6H PRN IVP Nausea & Vomiting 03/28/16 16:00 04/27/16 15:59 Polyethylene Glycol (Miralax) 17 gm HSPRN PRN ORAL Constipation 03/28/16 16:00 04/27/16 15:59 Sodium Chloride (Sodium Chloride 1000ml bag) 1,000 ml @ 100 mls/hr Q10H IV 03/28/16 16:00 04/27/16 15:59 03/29/16 09:14 Vitamin A/Vitamin D (A & D Oint) 1 applic EVERY 12 HOURS TOPIC 03/28/16 21:00 04/27/16 20:59 03/29/16 09:12 Warfarin Sodium (Coumadin) 3 mg COUMADIN ORAL 03/29/16 17:00 03/29/16 17:01 Warfarin Sodium 1 ea 1 ea DAILY PRN MISC Per rx protocol 03/27/16 16:45 04/26/16 16:44 Zolpidem Tartrate (Ambien) 5 mg HSPRN PRN ORAL Insomnia 03/28/16 21:00 04/27/16 20:59 Allergies: Coded Allergies: No Known Allergies (Unverified , 02/11/16) ROS Limited/Unobtainable: Yes Subjective Cover for Int Med-Dr Cope. [facility]. Found unresponsive earlier. See Rapid response note. Objective Last Vital Signs Date Time Temp Pulse Resp B/P Pulse Ox O2 Delivery O2 Flow Rate FiO2 03/29/16 15:14 87 20 98 Non-Rebreather 15.0 100 03/29/16 12:00 98.0 142/63 Laboratory Tests Test 03/29/16 04:40 White Blood Count 16.9 K/UL (4.8-10.8) H Red Blood Count 3.11 M/UL (4.20-5.40) L Hemoglobin 9.8 G/DL (12.0-16.0) L Hematocrit 29.7 % (37.0-47.0) L Mean Corpuscular Volume 95 FL (80-99) Mean Corpuscular Hemoglobin 31.5 PG (27.0-31.0) H Mean Corpuscular Hemoglobin Concent 33.0 G/DL (32.0-36.0) Red Cell Distribution Width 14.7 % (11.6-14.8) Platelet Count 182 K/UL (150-450) Mean Platelet Volume 6.4 FL (6.5-10.1) L Neutrophils (%) (Auto) % (45.0-75.0) Lymphocytes (%) (Auto) % (20.0-45.0) Monocytes (%) (Auto) % (1.0-10.0) Eosinophils (%) (Auto) % (0.0-3.0) Basophils (%) (Auto) % (0.0-2.0) Differential Total Cells Counted 100 Neutrophils % (Manual) 77 % (45-75) H Lymphocytes % (Manual) 6 % (20-45) L Monocytes % (Manual) 3 % (1-10) Eosinophils % (Manual) 4 % (0-3) H Basophils % (Manual) 0 % (0-2) Band Neutrophils 10 % (0-8) H Platelet Estimate Adequate Platelet Morphology Normal Hypochromasia 1+ Anisocytosis 1+ Prothrombin Time 26.7 SEC (9.30-11.50) H Prothromb Time International Ratio 2.5 (0.9-1.1) H Sodium Level 140 mEQ/L (135-145) Potassium Level 4.3 mEQ/L (3.4-4.9) # Chloride Level 104 mEQ/L (98-107) Carbon Dioxide Level 23 mEQ/L (20-30) Anion Gap 13 (5-15) Blood Urea Nitrogen 48 mg/dL (7-23) H Creatinine 2.3 mg/dL (0.5-0.9) H Estimat Glomerular Filtration Rate mL/min (>60) Glucose Level 205 mg/dL (74-106) H Calcium Level 8.4 mg/dL (8.6-10.2) L Phosphorus Level 4.1 mg/dL (2.5-4.8) Magnesium Level 1.8 mg/dL (1.7-2.5) Total Bilirubin 0.4 mg/dL (0.0-1.2) Aspartate Amino Transf (AST/SGOT) 18 U/L (5-40) Alanine Aminotransferase (ALT/SGPT) 19 U/L (3-33) Alkaline Phosphatase 126 U/L (35-104) H Total Protein 7.4 g/dL (6.6-8.7) Albumin 2.7 g/dL (3.5-5.2) L Globulin 4.7 g/dL Albumin/Globulin Ratio 0.5 (1.0-2.7) L Microbiology Date/Time Source Procedure Growth Status 03/26/16 18:50 Blood Blood Culture - Final Escherichia Coli - Esbl Complete 03/26/16 18:30 Blood Blood Culture - Preliminary NO GROWTH AFTER 48 HOURS Resulted 03/26/16 19:33 Nasal Nares MRSA Culture - Final Staphylococcus Aureus - Mrsa Complete 03/26/16 19:33 Urine,Clean Catch Urine Culture - Final Escherichia Coli - Esbl Complete 03/26/16 19:33 Rectum VRE Culture - Final Enterococcus Faecium - Vre Complete Intake and Output 03/28/16 03/29/16 19:00 07:00 Intake Total 1670 ml 1280 ml Output Total 150 ml 1100 ml Balance 1520 ml 180 ml Intake Oral 220 ml 180 ml IV Total 1450 ml 1100 ml Output Urine Total 150 ml 1100 ml Objective General Appearance: WD/WN, no apparent distress, alert EENT: PERRL/EOMI, normal ENT inspection Neck: non-tender, normal alignment, supple, normal inspection Cardiovascular: normal peripheral pulses, normal rate, regular rhythm, no gallop/murmur, no JVD Respiratory/Chest: non rebreather; chest wall non-tender, respiratory distress , no accessory muscle use, crackles/rales, rhonchi - bilaterally, expiratory wheezing Abdomen: normal bowel sounds, non tender, soft, no organomegaly, no mass, abnormal bowel sounds Extremities: normal range of motion Neurologic: painter chassis II-XII grossly normal, other - right hemiparesis Skin: normal pigmentation, warm/dry Assessment/Plan Problem List: (1) Cerebral vascular disease (2) Right hemiparesis (3) Hypercholesterolemia (4) Leukocytosis (5) UTI (urinary tract infection) Assessment & Plan: E.Coli. Cont ertapenem per ID. (6) CHF (congestive heart failure) (7) Atrial fibrillation Assessment & Plan: See Cardiology note. (8) Gram-negative bacteremia (9) Sepsis Assessment & Plan: E. Coli. Cont ertapenem per ID (10) Hypertension Assessment & Plan: Cont labetelol, hydralazine and vasotec (11) Renal failure (12) Diabetes mellitus Assessment & Plan: Cont starlix and novolog Status: deteriorating Assessment/Plan Prognosis guarded. Discussed with TOMAS, son Otis. Transfer to [facility] EMELY LORD Mar 29, 2016 16:31
[2016-03-29] MEDS ORDERED: Warfarin Sodium 3mg ORAL SCH (17:00)
[2016-03-29 17:09] LABS: BASOPHILS % (AUTO) 0.2 % (0.0-2.0); EOSINOPHILS % (AUTO) 0.2 % (0.0-3.0); LYMPHOCYTES % (AUTO) 5.9 % (20.0-45.0); MEAN CORPUSCULAR HEMOGLOBIN 30.6 PG (27.0-31.0); MEAN CORPUSCULAR HGB CONC 30.5 G/DL (32.0-36.0); MEAN CORPUSCULAR VOLUME 101 FL (80-99); MONOCYTES % (AUTO) 9.4 % (1.0-10.0); NEUTROPHILS % (AUTO) 84.4 % (45.0-75.0); PLATELET COUNT 141 K/UL (150-450); RED BLOOD COUNT 3.13 M/UL (4.20-5.40); RED CELL DISTRIBUTION WIDTH 15.4 % (11.6-14.8); WHITE BLOOD COUNT 10.5 K/UL (4.8-10.8)
[2016-03-29 17:49] LABS: ANION GAP 18 (5-15); CARBON DIOXIDE 17 mEQ/L (20-30); CHLORIDE 102 mEQ/L (98-107); CREATININE 2.5 mg/dL (0.5-0.9); HEMOLYSIS 30; POTASSIUM 4.8 mEQ/L (3.4-4.9); SODIUM 137 mEQ/L (135-145)
[2016-03-30] VITALS (7 sets, daily range): BP systolic 126–158; BP diastolic 62–79
[2016-03-30] MEDS: DuoNeb 0.5-3(2.5)mg/3ml neb HHN SCH ×6 (03:20→23:00)
[2016-03-30 05:06] LABS: BASOPHILS % (AUTO) 0.6 % (0.0-2.0); EOSINOPHILS % (AUTO) 2.1 % (0.0-3.0); LYMPHOCYTES % (AUTO) 7.1 % (20.0-45.0); MEAN CORPUSCULAR HEMOGLOBIN 30.9 PG (27.0-31.0); MEAN CORPUSCULAR HGB CONC 31.1 G/DL (32.0-36.0); MEAN CORPUSCULAR VOLUME 99 FL (80-99); MEAN PLATELET VOLUME 6.7 FL (6.5-10.1); MONOCYTES % (AUTO) 7.7 % (1.0-10.0); NEUTROPHILS % (AUTO) 82.5 % (45.0-75.0); PLATELET COUNT 156 K/UL (150-450); RED BLOOD COUNT 2.79 M/UL (4.20-5.40); RED CELL DISTRIBUTION WIDTH 15.2 % (11.6-14.8); WHITE BLOOD COUNT 9.6 K/UL (4.8-10.8)
[2016-03-30 05:10] LABS: INR 2.8 (0.9-1.1); PROTHROMBIN TIME 29.1 SEC (9.30-11.50)
[2016-03-30 05:17] LABS: ANION GAP 15 (5-15); CALCIUM 8.4 mg/dL (8.6-10.2); CARBON DIOXIDE 21 mEQ/L (20-30); CHLORIDE 103 mEQ/L (98-107); CREATININE 2.5 mg/dL (0.5-0.9); HEMOLYSIS 5; POTASSIUM 4.1 mEQ/L (3.4-4.9); SODIUM 139 mEQ/L (135-145)
[2016-03-30] MEDS: metroNIDAZOLE 500mg 100 ML IVPB SCH ×3 (05:36→21:35)
[2016-03-30] MEDS: NovoLOG Insulin Flexpen SUBQ SCH ×4 (06:33→21:37)
--- NOTE | 2016-03-30 08:37 | Infectious Diseases Prog Note ---
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 WBC resolved transferred to [facility] Objective Vital Signs Last 24 Hour Vital Signs Date Time Temp Pulse Resp B/P Pulse Ox O2 Delivery O2 Flow Rate FiO2 03/30/16 07:49 35 03/30/16 07:49 94 25 98 Venturi Mask 35 03/30/16 07:47 98 25 94 Venturi Mask 6.0 03/30/16 05:35 100 148/78 03/30/16 05:35 148/78 03/30/16 05:25 100 148/78 03/30/16 03:45 97.7 100 18 126/62 97 Venturi Mask 6.0 35 03/30/16 03:40 99 03/30/16 03:29 90 18 98 Venturi Mask 6.0 35 03/30/16 03:20 91 18 98 Venturi Mask 6.0 35 03/30/16 01:00 126/65 03/30/16 00:04 97.3 97 20 126/65 98 Venturi Mask 8.0 40 03/29/16 23:56 97 03/29/16 23:32 81 18 97 Venturi Mask 8.0 40 03/29/16 23:22 85 18 97 Venturi Mask 8.0 40 03/29/16 20:00 97.0 79 18 133/68 99 03/29/16 19:34 80 20 99 Non-Rebreather 15.0 100 03/29/16 19:24 81 18 99 Non-Rebreather 15.0 100 03/29/16 18:17 97/47 03/29/16 18:14 74 97/47 03/29/16 17:53 97/47 03/29/16 17:01 97/47 03/29/16 16:00 97.2 74 18 117/53 99 Non-Rebreather 10.0 03/29/16 15:14 87 20 98 Non-Rebreather 15.0 100 03/29/16 15:03 84 20 100 Nasal Cannula 15.0 100 03/29/16 12:30 97 18 97 Non-Rebreather 15.0 100 03/29/16 12:30 100 03/29/16 12:30 97 18 97 Non-Rebreather 15.0 100 03/29/16 12:00 98.0 100 20 142/63 99 Non-Rebreather 10.0 03/29/16 09:11 147/77 Height (Feet): 5 Height (Inches): 3.00 Weight (Pounds): 150 General Appearance: no acute distress Respiratory/Chest: no respiratory distress Cardiovascular: normal rate, regular rhythm Abdomen: normal bowel sounds, soft, non tender, non distended Laboratory Tests Test 03/29/16 17:00 03/30/16 03:15 White Blood Count 10.5 K/UL (4.8-10.8) 9.6 K/UL (4.8-10.8) Red Blood Count 3.13 M/UL (4.20-5.40) L 2.79 M/UL (4.20-5.40) L Hemoglobin 9.6 G/DL (12.0-16.0) L 8.6 G/DL (12.0-16.0) L Hematocrit 31.5 % (37.0-47.0) L 27.7 % (37.0-47.0) L Mean Corpuscular Volume 101 FL (80-99) H 99 FL (80-99) Mean Corpuscular Hemoglobin 30.6 PG (27.0-31.0) 30.9 PG (27.0-31.0) Mean Corpuscular Hemoglobin Concent 30.5 G/DL (32.0-36.0) L 31.1 G/DL (32.0-36.0) L Red Cell Distribution Width 15.4 % (11.6-14.8) H 15.2 % (11.6-14.8) H Platelet Count 141 K/UL (150-450) L 156 K/UL (150-450) Mean Platelet Volume 7.0 FL (6.5-10.1) 6.7 FL (6.5-10.1) Neutrophils (%) (Auto) 84.4 % (45.0-75.0) H 82.5 % (45.0-75.0) H Lymphocytes (%) (Auto) 5.9 % (20.0-45.0) L 7.1 % (20.0-45.0) L Monocytes (%) (Auto) 9.4 % (1.0-10.0) 7.7 % (1.0-10.0) Eosinophils (%) (Auto) 0.2 % (0.0-3.0) 2.1 % (0.0-3.0) Basophils (%) (Auto) 0.2 % (0.0-2.0) 0.6 % (0.0-2.0) Sodium Level 137 mEQ/L (135-145) 139 mEQ/L (135-145) Potassium Level 4.8 mEQ/L (3.4-4.9) 4.1 mEQ/L (3.4-4.9) Chloride Level 102 mEQ/L (98-107) 103 mEQ/L (98-107) Carbon Dioxide Level 17 mEQ/L (20-30) L 21 mEQ/L (20-30) Anion Gap 18 (5-15) H 15 (5-15) Blood Urea Nitrogen 51 mg/dL (7-23) H 51 mg/dL (7-23) H Creatinine 2.5 mg/dL (0.5-0.9) H 2.5 mg/dL (0.5-0.9) H Estimat Glomerular Filtration Rate mL/min (>60) mL/min (>60) Glucose Level 321 mg/dL (74-106) #H 223 mg/dL (74-106) H Calcium Level 8.0 mg/dL (8.6-10.2) L 8.4 mg/dL (8.6-10.2) L Prothrombin Time 29.1 SEC (9.30-11.50) H Prothromb Time International Ratio 2.8 (0.9-1.1) H Current Medications Medications (Trade) Dose Ordered Sig/Matteo Route PRN Reason Start Time Stop Time Status Last Admin Dose Admin Acetaminophen (Tylenol) 650 mg Q4H PRN ORAL fever 03/28/16 16:00 04/27/16 15:59 Al Hydroxide/Mg Hydroxide (Mylanta II) 30 ml Q6H PRN ORAL dyspepsia 03/28/16 16:00 04/27/16 15:59 Albuterol/ Ipratropium 3 ml 3 ml Q4HRT HHN 03/29/16 15:00 04/03/16 14:59 03/30/16 07:46 Aspirin (Ecotrin) 81 mg EVERY OTHER DAY ORAL 03/29/16 09:00 04/28/16 08:59 03/29/16 09:12 Atorvastatin Calcium (Lipitor) 10 mg BEDTIME ORAL 03/28/16 21:00 04/27/16 20:59 03/29/16 21:47 Clonidine HCl (Catapres) 0.1 mg EVERY 4 HOURS ORAL 03/28/16 17:00 04/27/16 16:59 03/30/16 05:35 Dextrose (Dextrose 50%) STAT PRN IV Hypoglycemia 03/28/16 16:00 04/27/16 15:59 Diltiazem HCl (Cardizem) 90 mg EVERY 8 HOURS ORAL 03/28/16 22:00 04/27/16 21:59 03/30/16 05:35 Enalaprilat (Vasotec) 2.5 mg Q4H PRN IV sbp more than 200 03/28/16 16:00 04/27/16 15:59 Ertapenem 0.5 gm/ Sodium Chloride 50 ml @ 100 mls/hr Q24H IVPB 03/29/16 09:00 04/04/16 08:59 03/29/16 11:12 Insulin Aspart (NovoLOG) BEFORE MEALS AND HS SUBQ 03/28/16 16:30 04/27/16 16:29 03/30/16 06:33 Lorazepam (Ativan 2mg/ml 1ml) 0.5 mg Q4H PRN IV For Anxiety 03/28/16 16:00 04/04/16 15:59 Metronidazole 100 ml @ 100 mls/hr Q8HR IVPB 03/28/16 22:00 04/04/16 21:59 03/30/16 05:36 Morphine Sulfate (Morphine Sulfate) 1 mg Q4H PRN IVP for severe pain 03/28/16 16:00 04/04/16 15:59 03/29/16 00:11 Nateglinide (Starlix) 60 mg THREE TIMES A DAY ORAL 03/28/16 18:00 04/27/16 17:59 03/29/16 18:09 Ondansetron HCl (Zofran) 4 mg Q6H PRN IVP Nausea & Vomiting 03/28/16 16:00 04/27/16 15:59 Polyethylene Glycol (Miralax) 17 gm HSPRN PRN ORAL Constipation 03/28/16 16:00 04/27/16 15:59 Sodium Chloride (Sodium Chloride 1000ml bag) 1,000 ml @ 0 mls/hr Q0M IV 03/29/16 17:30 04/28/16 17:29 Sodium Chloride (Sodium Chloride 1000ml bag) 1,000 ml @ 100 mls/hr Q10H IV 03/28/16 16:00 04/27/16 15:59 03/30/16 08:15 Vitamin A/Vitamin D (A & D Oint) 1 applic EVERY 12 HOURS TOPIC 03/28/16 21:00 04/27/16 20:59 03/29/16 21:47 Warfarin Sodium 1 ea 1 ea DAILY PRN MISC Per rx protocol 03/27/16 16:45 04/26/16 16:44 Zolpidem Tartrate (Ambien) 5 mg HSPRN PRN ORAL Insomnia 03/28/16 21:00 04/27/16 20:59 SERA FORREST Mar 30, 2016 08:37
--- NOTE | 2016-03-30 08:49 | Diagnostic Imaging Report ---
Indications: Altered metal status Technique: Spiral acquisitions obtained through the brain. Angled axial and coronal 5 x 5 mm slices were reconstructed. Total dose length product 1344 mGycm. CTDI vol(s) 70 mGy Comparison: None Findings: There is large area of encephalomalacia of the high left parietal lobe there the vertex. There is a smaller area of encephalomalacia of the posterior parasagittal left parietal lobe There is encephalomalacia of the right cerebellar hemisphere. No acute hemorrhage or edema. No mass effect or midline shift. There is age-related enlargement of the ventricles and extra-axial CSF spaces. There is considerable periventricular deep white matter chronic ischemic change. The orbits are remarkable for evidence of prior bilateral cataract surgery. There are is bilateral ethmoid and sphenoid sinus disease incidentally noted. Is also minimal left maxillary mucosal thickening. There is some opacification of mastoid air cells on the right Impression: Multiple old infarcts, as described Other chronic and age-related changes, as described Negative for acute intracranial bleed or mass effect Sinus disease This agrees with the preliminary interpretation provided overnight by Dr. Lin The CT scanner at [facility] is accredited by the [employer] and the scans are performed using protocols designed to limit radiation exposure to as low as reasonably achievable to attain images of sufficient resolution adequate for diagnostic evaluation.
[2016-03-30] MEDS: Vitamin A&D Oint 2oz Tube TOPIC SCH ×2 (09:00→21:00)
[2016-03-30] MEDS: Nateglinide 60mg tab ORAL SCH ×3 (09:58→18:40)
--- NOTE | 2016-03-30 10:27 | Diagnostic Imaging Report ---
Indication: Shortness of breath Technique: One view of the chest Comparison: 3 hours earlier Findings: There appears to be increased pleural fluid on the right. Pleural fluid on the left is stable. There is minimal interstitial congestion. No focal airspace consolidation. The heart is enlarged. Cholecystectomy clips are incidentally noted Impression: Increased right, stable left pleural effusions, over 3 hours. Other stable findings as described This agrees with the preliminary interpretation provided overnight by [facility] teleradiology service.
--- NOTE | 2016-03-30 11:50 | Pulmonology Progress Note ---
Assessment/Plan Problems: (1) Gram-negative bacteremia (2) Sepsis (3) Hypertensive urgency, malignant (4) Acute encephalopathy (5) ATN (acute tubular necrosis) (6) shelter resident (7) Diabetes mellitus (8) DNR (do not resuscitate) Assessment/Plan Pleural effusion is increasing bun/creatinine stable continue antibiotics ( meropenem + Flagyl) repeat cxr in am Heart rate controlled on coumadin / pharmacy dosing keep in [facility] Subjective ROS Limited/Unobtainable: No Allergies: Coded Allergies: No Known Allergies (Unverified , 02/11/16) Objective Last 24 Hour Vital Signs Date Time Temp Pulse Resp B/P Pulse Ox O2 Delivery O2 Flow Rate FiO2 03/30/16 11:06 Non-Rebreather 03/30/16 11:05 Non-Rebreather 03/30/16 10:03 148/78 03/30/16 08:00 116 03/30/16 08:00 98.1 99 26 144/69 94 Venturi Mask 6.0 03/30/16 07:49 35 03/30/16 07:49 94 25 98 Venturi Mask 35 03/30/16 07:47 98 25 94 Venturi Mask 6.0 03/30/16 05:35 100 148/78 03/30/16 05:35 148/78 03/30/16 05:25 100 148/78 03/30/16 03:45 97.7 100 18 126/62 97 Venturi Mask 6.0 35 03/30/16 03:40 99 03/30/16 03:29 90 18 98 Venturi Mask 6.0 35 03/30/16 03:20 91 18 98 Venturi Mask 6.0 35 03/30/16 01:00 126/65 03/30/16 00:04 97.3 97 20 126/65 98 Venturi Mask 8.0 40 03/29/16 23:56 97 03/29/16 23:32 81 18 97 Venturi Mask 8.0 40 03/29/16 23:22 85 18 97 Venturi Mask 8.0 40 03/29/16 20:00 97.0 79 18 133/68 99 03/29/16 19:34 80 20 99 Non-Rebreather 15.0 100 03/29/16 19:24 81 18 99 Non-Rebreather 15.0 100 03/29/16 18:17 97/47 03/29/16 18:14 74 97/47 03/29/16 17:53 97/47 03/29/16 17:01 97/47 03/29/16 16:00 97.2 74 18 117/53 99 Non-Rebreather 10.0 03/29/16 15:14 87 20 98 Non-Rebreather 15.0 100 03/29/16 15:03 84 20 100 Nasal Cannula 15.0 100 03/29/16 12:30 97 18 97 Non-Rebreather 15.0 100 03/29/16 12:30 100 03/29/16 12:30 97 18 97 Non-Rebreather 15.0 100 03/29/16 12:00 98.0 100 20 142/63 99 Non-Rebreather 10.0 Intake and Output 03/29/16 03/30/16 19:00 07:00 Intake Total 1210 ml 1300 ml Output Total 600 ml 900 ml Balance 610 ml 400 ml Intake Oral 360 ml 50 ml IV Total 850 ml 1250 ml Output Urine Total 600 ml 900 ml HEENT: normocephalic, atraumatic Respiratory/Chest: chest wall non-tender, lungs clear Cardiovascular: normal peripheral pulses, normal rate Abdomen: normal bowel sounds, soft, non tender Extremities: no cyanosis, no clubbing Neurologic/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: 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, no motor/sensory deficits Laboratory Tests 03/29/16 17:00: White Blood Count 10.5, Red Blood Count 3.13L, Hemoglobin 9.6L, Hematocrit 31.5L , Mean Corpuscular Volume 101H, Mean Corpuscular Hemoglobin 30.6, Mean Corpuscular Hemoglobin Concent 30.5L, Red Cell Distribution Width 15.4H, Platelet Count 141L, Mean Platelet Volume 7.0, Neutrophils (%) (Auto) 84.4H, Lymphocytes (%) (Auto) 5.9L, Monocytes (%) (Auto) 9.4, Eosinophils (%) (Auto) 0.2, Basophils (%) (Auto) 0.2, Sodium Level 137, Potassium Level 4.8, Chloride Level 102, Carbon Dioxide Level 17L, Anion Gap 18H, Blood Urea Nitrogen 51H, Creatinine 2.5H, Estimat Glomerular Filtration Rate , Glucose Level 321#H, Calcium Level 8.0L 03/30/16 03:15: White Blood Count 9.6, Red Blood Count 2.79L, Hemoglobin 8.6L, Hematocrit 27.7L , Mean Corpuscular Volume 99, Mean Corpuscular Hemoglobin 30.9, Mean Corpuscular Hemoglobin Concent 31.1L, Red Cell Distribution Width 15.2H, Platelet Count 156, Mean Platelet Volume 6.7, Neutrophils (%) (Auto) 82.5H, Lymphocytes (%) (Auto) 7.1L, Monocytes (%) (Auto) 7.7, Eosinophils (%) (Auto) 2.1, Basophils (%) (Auto) 0.6, Sodium Level 139, Potassium Level 4.1, Chloride Level 103, Carbon Dioxide Level 21, Anion Gap 15, Blood Urea Nitrogen 51H, Creatinine 2.5H, Estimat Glomerular Filtration Rate , Glucose Level 223H, Calcium Level 8.4L, Prothrombin Time 29.1H, Prothromb Time International Ratio 2.8H Current Medications Medications (Trade) Dose Ordered Sig/Matteo Route PRN Reason Start Time Stop Time Status Last Admin Dose Admin Acetaminophen (Tylenol) 650 mg Q4H PRN ORAL fever 03/28/16 16:00 04/27/16 15:59 Al Hydroxide/Mg Hydroxide (Mylanta II) 30 ml Q6H PRN ORAL dyspepsia 03/28/16 16:00 04/27/16 15:59 Albuterol/ Ipratropium 3 ml 3 ml Q4HRT HHN 03/29/16 15:00 04/03/16 14:59 03/30/16 07:46 Aspirin (Ecotrin) 81 mg EVERY OTHER DAY ORAL 03/29/16 09:00 04/28/16 08:59 03/29/16 09:12 Atorvastatin Calcium (Lipitor) 10 mg BEDTIME ORAL 03/28/16 21:00 04/27/16 20:59 03/29/16 21:47 Clonidine HCl (Catapres) 0.1 mg EVERY 4 HOURS ORAL 03/28/16 17:00 04/27/16 16:59 03/30/16 10:03 Dextrose (Dextrose 50%) STAT PRN IV Hypoglycemia 03/28/16 16:00 04/27/16 15:59 Diltiazem HCl (Cardizem) 90 mg EVERY 8 HOURS ORAL 03/28/16 22:00 04/27/16 21:59 03/30/16 05:35 Enalaprilat (Vasotec) 2.5 mg Q4H PRN IV sbp more than 200 03/28/16 16:00 04/27/16 15:59 Ertapenem 0.5 gm/ Sodium Chloride 50 ml @ 100 mls/hr Q24H IVPB 03/29/16 09:00 04/04/16 08:59 03/30/16 10:39 Insulin Aspart (NovoLOG) BEFORE MEALS AND HS SUBQ 03/28/16 16:30 04/27/16 16:29 03/30/16 06:33 Lorazepam (Ativan 2mg/ml 1ml) 0.5 mg Q4H PRN IV For Anxiety 03/28/16 16:00 04/04/16 15:59 Metronidazole 100 ml @ 100 mls/hr Q8HR IVPB 03/28/16 22:00 03/30/16 23:59 03/30/16 05:36 Morphine Sulfate (Morphine Sulfate) 1 mg Q4H PRN IVP for severe pain 03/28/16 16:00 04/04/16 15:59 03/29/16 00:11 Nateglinide (Starlix) 60 mg THREE TIMES A DAY ORAL 03/28/16 18:00 04/27/16 17:59 03/30/16 09:58 Ondansetron HCl (Zofran) 4 mg Q6H PRN IVP Nausea & Vomiting 03/28/16 16:00 04/27/16 15:59 Polyethylene Glycol (Miralax) 17 gm HSPRN PRN ORAL Constipation 03/28/16 16:00 04/27/16 15:59 Sodium Chloride (Sodium Chloride 1000ml bag) 1,000 ml @ 0 mls/hr Q0M IV 03/29/16 17:30 04/28/16 17:29 Sodium Chloride (Sodium Chloride 1000ml bag) 1,000 ml @ 100 mls/hr Q10H IV 03/28/16 16:00 04/27/16 15:59 03/30/16 08:15 Vitamin A/Vitamin D (A & D Oint) 1 applic EVERY 12 HOURS TOPIC 03/28/16 21:00 04/27/16 20:59 03/30/16 09:00 Warfarin Sodium (Coumadin) 2.5 mg COUMADIN ONCE ORAL 03/30/16 17:00 03/30/16 17:01 Warfarin Sodium 1 ea 1 ea DAILY PRN MISC Per rx protocol 03/27/16 16:45 04/26/16 16:44 Zolpidem Tartrate (Ambien) 5 mg HSPRN PRN ORAL Insomnia 03/28/16 21:00 04/27/16 20:59 AUDIE MAY Mar 30, 2016 11:50
--- NOTE | 2016-03-30 12:06 | Consultation ---
Consult Note Consult Note asked to eval at the request of Dr Mott for renal failure- currently admitted for: 1) Gram-negative bacteremia (2) Sepsis (3) Hypertensive urgency, malignant (4) Acute encephalopathy (5) DNR (do not resuscitate) Patient examined- Data reviewed Assessment/Plan status: - Renal failure, likely chronic , h/o small kidney- - ? DM and or HTN (1) Sepsis / UTI (2) Atrial flutter with rapid ventricular response (3) Acute encephalopathy (4) Hypothyroidism. (5) Hyperglycemia. DM Plan: Anemia FLORES Per ID- Keep BP and BS in check- Kidney CARTER- Atrophic echogenic left kidney, consistent with medical renal disease. Asymmetry may indicate long-standing left renal artery stenosis Negative for hydronephrosis Incidental findings of bilateral renal cyst, left lobe liver cyst. Avoid Nephrotoxics- monitor renal parameters SOCORRO NUNN Mar 30, 2016 12:06
--- NOTE | 2016-03-30 13:14 | Internal Med Progress Note ---
Subjective Date of Service: Mar 30, 2016 Physician Name Emely Lord Attending Physician Hasmukh Cope MD Current Medications Medications (Trade) Dose Ordered Sig/Matteo Route PRN Reason Start Time Stop Time Status Last Admin Dose Admin Acetaminophen (Tylenol) 650 mg Q4H PRN ORAL fever 03/28/16 16:00 04/27/16 15:59 Albuterol/ Ipratropium 3 ml 3 ml Q4HRT HHN 03/29/16 15:00 04/03/16 14:59 03/30/16 07:46 Aspirin (Ecotrin) 81 mg EVERY OTHER DAY ORAL 03/29/16 09:00 04/28/16 08:59 03/29/16 09:12 Atorvastatin Calcium (Lipitor) 10 mg BEDTIME ORAL 03/28/16 21:00 04/27/16 20:59 03/29/16 21:47 Clonidine HCl (Catapres) 0.1 mg EVERY 8 HOURS ORAL 03/30/16 14:00 04/29/16 13:59 Dextrose (Dextrose 50%) STAT PRN IV Hypoglycemia 03/28/16 16:00 04/27/16 15:59 Diltiazem HCl (Cardizem) 90 mg EVERY 8 HOURS ORAL 03/28/16 22:00 04/27/16 21:59 03/30/16 05:35 Enalaprilat (Vasotec) 2.5 mg Q4H PRN IV sbp more than 200 03/28/16 16:00 04/27/16 15:59 Ertapenem 0.5 gm/ Sodium Chloride 50 ml @ 100 mls/hr Q24H IVPB 03/29/16 09:00 04/04/16 08:59 03/30/16 10:39 Insulin Aspart (NovoLOG) BEFORE MEALS AND HS SUBQ 03/28/16 16:30 04/27/16 16:29 03/30/16 12:51 Lorazepam (Ativan 2mg/ml 1ml) 0.5 mg Q4H PRN IV For Anxiety 03/28/16 16:00 04/04/16 15:59 Metronidazole 100 ml @ 100 mls/hr Q8HR IVPB 03/28/16 22:00 03/30/16 23:59 03/30/16 05:36 Morphine Sulfate (Morphine Sulfate) 1 mg Q4H PRN IVP for severe pain 03/28/16 16:00 04/04/16 15:59 03/29/16 00:11 Nateglinide (Starlix) 60 mg THREE TIMES A DAY ORAL 03/28/16 18:00 04/27/16 17:59 03/30/16 09:58 Ondansetron HCl (Zofran) 4 mg Q6H PRN IVP Nausea & Vomiting 03/28/16 16:00 04/27/16 15:59 Polyethylene Glycol (Miralax) 17 gm HSPRN PRN ORAL Constipation 03/28/16 16:00 04/27/16 15:59 Sodium Chloride (Sodium Chloride 1000ml bag) 1,000 ml @ 0 mls/hr Q0M IV 03/29/16 17:30 04/28/16 17:29 Sodium Chloride (Sodium Chloride 1000ml bag) 1,000 ml @ 100 mls/hr Q10H IV 03/28/16 16:00 04/27/16 15:59 03/30/16 08:15 Vitamin A/Vitamin D (A & D Oint) 1 applic EVERY 12 HOURS TOPIC 03/28/16 21:00 04/27/16 20:59 03/30/16 09:00 Warfarin Sodium (Coumadin) 2.5 mg COUMADIN ONCE ORAL 03/30/16 17:00 03/30/16 17:01 Warfarin Sodium 1 ea 1 ea DAILY PRN MISC Per rx protocol 03/27/16 16:45 04/26/16 16:44 Zolpidem Tartrate (Ambien) 5 mg HSPRN PRN ORAL Insomnia 03/28/16 21:00 04/27/16 20:59 Allergies: Coded Allergies: No Known Allergies (Unverified , 02/11/16) ROS Limited/Unobtainable: Yes Subjective Cover for Int Med-Dr Cope. [facility]. Continues on non rebreather mask. Lethargic ; barely arousable. Tachycardia Objective Last Vital Signs Date Time Temp Pulse Resp B/P Pulse Ox O2 Delivery O2 Flow Rate FiO2 03/30/16 11:06 Non-Rebreather 03/30/16 10:03 148/78 03/30/16 08:00 116 03/30/16 08:00 98.1 26 94 6.0 03/30/16 07:49 35 Laboratory Tests Test 03/29/16 17:00 03/30/16 03:15 White Blood Count 10.5 K/UL (4.8-10.8) 9.6 K/UL (4.8-10.8) Red Blood Count 3.13 M/UL (4.20-5.40) L 2.79 M/UL (4.20-5.40) L Hemoglobin 9.6 G/DL (12.0-16.0) L 8.6 G/DL (12.0-16.0) L Hematocrit 31.5 % (37.0-47.0) L 27.7 % (37.0-47.0) L Mean Corpuscular Volume 101 FL (80-99) H 99 FL (80-99) Mean Corpuscular Hemoglobin 30.6 PG (27.0-31.0) 30.9 PG (27.0-31.0) Mean Corpuscular Hemoglobin Concent 30.5 G/DL (32.0-36.0) L 31.1 G/DL (32.0-36.0) L Red Cell Distribution Width 15.4 % (11.6-14.8) H 15.2 % (11.6-14.8) H Platelet Count 141 K/UL (150-450) L 156 K/UL (150-450) Mean Platelet Volume 7.0 FL (6.5-10.1) 6.7 FL (6.5-10.1) Neutrophils (%) (Auto) 84.4 % (45.0-75.0) H 82.5 % (45.0-75.0) H Lymphocytes (%) (Auto) 5.9 % (20.0-45.0) L 7.1 % (20.0-45.0) L Monocytes (%) (Auto) 9.4 % (1.0-10.0) 7.7 % (1.0-10.0) Eosinophils (%) (Auto) 0.2 % (0.0-3.0) 2.1 % (0.0-3.0) Basophils (%) (Auto) 0.2 % (0.0-2.0) 0.6 % (0.0-2.0) Sodium Level 137 mEQ/L (135-145) 139 mEQ/L (135-145) Potassium Level 4.8 mEQ/L (3.4-4.9) 4.1 mEQ/L (3.4-4.9) Chloride Level 102 mEQ/L (98-107) 103 mEQ/L (98-107) Carbon Dioxide Level 17 mEQ/L (20-30) L 21 mEQ/L (20-30) Anion Gap 18 (5-15) H 15 (5-15) Blood Urea Nitrogen 51 mg/dL (7-23) H 51 mg/dL (7-23) H Creatinine 2.5 mg/dL (0.5-0.9) H 2.5 mg/dL (0.5-0.9) H Estimat Glomerular Filtration Rate mL/min (>60) mL/min (>60) Glucose Level 321 mg/dL (74-106) #H 223 mg/dL (74-106) H Calcium Level 8.0 mg/dL (8.6-10.2) L 8.4 mg/dL (8.6-10.2) L Prothrombin Time 29.1 SEC (9.30-11.50) H Prothromb Time International Ratio 2.8 (0.9-1.1) H Intake and Output 03/29/16 03/30/16 19:00 07:00 Intake Total 1210 ml 1300 ml Output Total 600 ml 900 ml Balance 610 ml 400 ml Intake Oral 360 ml 50 ml IV Total 850 ml 1250 ml Output Urine Total 600 ml 900 ml Objective General Appearance: WD/WN, no apparent distress, alert EENT: PERRL/EOMI, normal ENT inspection Neck: non-tender, normal alignment, supple, normal inspection Cardiovascular: Tachycardia; normal peripheral pulses, regular rhythm, no gallop/murmur, no JVD Respiratory/Chest: non rebreather; chest wall non-tender, respiratory distress , no accessory muscle use, crackles/rales, rhonchi - bilaterally, expiratory wheezing Abdomen: normal bowel sounds, non tender, soft, no organomegaly, no mass, abnormal bowel sounds Extremities: normal range of motion 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 Cont ertapenem per ID. (6) CHF (congestive heart failure) (7) Atrial fibrillation Assessment & Plan: Rapid rate. See Cardiology note. cont cardizem (8) Gram-negative bacteremia (9) Sepsis Assessment & Plan: E. Coli ESBL. Cont ertapenem per ID (10) Hypertension Assessment & Plan: Cont labetelol, hydralazine and vasotec (11) Renal failure (12) Diabetes mellitus Assessment & Plan: Cont starlix and novolog Status: deteriorating Assessment/Plan Prognosis guarded. Discussed with TOMAS, son Otis. EMELY LORD Mar 30, 2016 13:14
--- NOTE | 2016-03-30 16:18 | Cardiac Electrophysiology PN ---
Assessment/Plan Assessment/Plan 1. Atrial flutter with RVR.Increase Cardizem to 90 mg q. 6 hr and Coumadin. INR is therapeutic . 2. Hypertension. Increase Cardizem to 90 mg q. 6 hr . 3. Shortness of breath and cough, possible pneumonia, on antibiotics. 4. Cerebrovascular accident x2 in 2005. 5. Hypothyroidism. 6. Renal failure. 7. Do not resuscitate. DW RN and sister at bedside. Subjective Subjective Had atrial fib with RVR up to 140s that self terminated and Cardizem. Sister at Bedside. Objective Last 24 Hour Vital Signs Date Time Temp Pulse Resp B/P Pulse Ox O2 Delivery O2 Flow Rate FiO2 03/30/16 15:22 Non-Rebreather 03/30/16 15:21 Non-Rebreather 03/30/16 14:11 135/77 03/30/16 13:16 140 135/77 03/30/16 12:00 143 03/30/16 12:00 97.7 150 18 135/77 100 Venturi Mask 6.0 03/30/16 11:06 Non-Rebreather 03/30/16 11:05 Non-Rebreather 03/30/16 10:03 148/78 03/30/16 08:00 116 03/30/16 08:00 98.1 99 26 144/69 94 Venturi Mask 6.0 03/30/16 07:49 35 03/30/16 07:49 94 25 98 Venturi Mask 35 03/30/16 07:47 98 25 94 Venturi Mask 6.0 03/30/16 05:35 100 148/78 03/30/16 05:35 148/78 03/30/16 05:25 100 148/78 03/30/16 03:45 97.7 100 18 126/62 97 Venturi Mask 6.0 35 03/30/16 03:40 99 03/30/16 03:29 90 18 98 Venturi Mask 6.0 35 03/30/16 03:20 91 18 98 Venturi Mask 6.0 35 03/30/16 01:00 126/65 03/30/16 00:04 97.3 97 20 126/65 98 Venturi Mask 8.0 40 03/29/16 23:56 97 03/29/16 23:32 81 18 97 Venturi Mask 8.0 40 03/29/16 23:22 85 18 97 Venturi Mask 8.0 40 03/29/16 20:00 97.0 79 18 133/68 99 03/29/16 19:34 80 20 99 Non-Rebreather 15.0 100 03/29/16 19:24 81 18 99 Non-Rebreather 15.0 100 03/29/16 18:17 97/47 03/29/16 18:14 74 97/47 03/29/16 17:53 97/47 03/29/16 17:01 Intake and Output 03/29/16 03/30/16 19:00 07:00 Intake Total 1210 ml 1300 ml Output Total 600 ml 900 ml Balance 610 ml 400 ml Intake Oral 360 ml 50 ml IV Total 850 ml 1250 ml Output Urine Total 600 ml 900 ml Laboratory Tests Test 03/29/16 17:00 03/30/16 03:15 White Blood Count 10.5 K/UL (4.8-10.8) 9.6 K/UL (4.8-10.8) Red Blood Count 3.13 M/UL (4.20-5.40) L 2.79 M/UL (4.20-5.40) L Hemoglobin 9.6 G/DL (12.0-16.0) L 8.6 G/DL (12.0-16.0) L Hematocrit 31.5 % (37.0-47.0) L 27.7 % (37.0-47.0) L Mean Corpuscular Volume 101 FL (80-99) H 99 FL (80-99) Mean Corpuscular Hemoglobin 30.6 PG (27.0-31.0) 30.9 PG (27.0-31.0) Mean Corpuscular Hemoglobin Concent 30.5 G/DL (32.0-36.0) L 31.1 G/DL (32.0-36.0) L Red Cell Distribution Width 15.4 % (11.6-14.8) H 15.2 % (11.6-14.8) H Platelet Count 141 K/UL (150-450) L 156 K/UL (150-450) Mean Platelet Volume 7.0 FL (6.5-10.1) 6.7 FL (6.5-10.1) Neutrophils (%) (Auto) 84.4 % (45.0-75.0) H 82.5 % (45.0-75.0) H Lymphocytes (%) (Auto) 5.9 % (20.0-45.0) L 7.1 % (20.0-45.0) L Monocytes (%) (Auto) 9.4 % (1.0-10.0) 7.7 % (1.0-10.0) Eosinophils (%) (Auto) 0.2 % (0.0-3.0) 2.1 % (0.0-3.0) Basophils (%) (Auto) 0.2 % (0.0-2.0) 0.6 % (0.0-2.0) Sodium Level 137 mEQ/L (135-145) 139 mEQ/L (135-145) Potassium Level 4.8 mEQ/L (3.4-4.9) 4.1 mEQ/L (3.4-4.9) Chloride Level 102 mEQ/L (98-107) 103 mEQ/L (98-107) Carbon Dioxide Level 17 mEQ/L (20-30) L 21 mEQ/L (20-30) Anion Gap 18 (5-15) H 15 (5-15) Blood Urea Nitrogen 51 mg/dL (7-23) H 51 mg/dL (7-23) H Creatinine 2.5 mg/dL (0.5-0.9) H 2.5 mg/dL (0.5-0.9) H Estimat Glomerular Filtration Rate mL/min (>60) mL/min (>60) Glucose Level 321 mg/dL (74-106) #H 223 mg/dL (74-106) H Calcium Level 8.0 mg/dL (8.6-10.2) L 8.4 mg/dL (8.6-10.2) L Prothrombin Time 29.1 SEC (9.30-11.50) H Prothromb Time International Ratio 2.8 (0.9-1.1) H Objective HEAD AND NECK: Shows no JVD. LUNGS: Coarse rhonchi. CARDIOVASCULAR: Regular S1 and S2 with no gallop or murmur. ABDOMEN: Soft and nontender. EXTREMITIES: No pitting edema. RICHARD HOWARD Mar 30, 2016 16:18
[2016-03-30] MEDS ORDERED: Warfarin Sodium 2.5mg ORAL ONE (17:00)
[2016-03-31] VITALS: BP 128/68
[2016-03-31 04:00] VITALS: BP 105/53
[2016-03-31] MEDS: Levalbuterol Inh UD 1.25mg/0.5ml HHN SCH ×3 (04:06→10:53)
[2016-03-31] MEDS: NovoLOG Insulin Flexpen SUBQ SCH (05:39)
[2016-03-31 05:54] LABS: MEAN CORPUSCULAR HEMOGLOBIN 30.9 PG (27.0-31.0); MEAN CORPUSCULAR HGB CONC 29.9 G/DL (32.0-36.0); MEAN CORPUSCULAR VOLUME 103 FL (80-99); MEAN PLATELET VOLUME 6.9 FL (6.5-10.1); PLATELET COUNT 213 K/UL (150-450); RED BLOOD COUNT 3.45 M/UL (4.20-5.40); RED CELL DISTRIBUTION WIDTH 15.8 % (11.6-14.8); WHITE BLOOD COUNT 18.7 K/UL (4.8-10.8)
[2016-03-31 06:26] LABS: HEMOLYSIS 28; IRON 34 ug/dL (37-145); TOTAL IRON BINDING CAPACITY 163 ug/dL (250-400)
[2016-03-31 06:27] LABS: ALANINE AMINOTRANSFERASE 23 U/L (3-33); ALBUMIN/GLOBULIN RATIO 0.5 (1.0-2.7); ANION GAP 12 (5-15); ASPARTATE AMINO TRANSFERASE 38 U/L (5-40); CALCIUM 8.6 mg/dL (8.6-10.2); CARBON DIOXIDE 24 mEQ/L (20-30); CHLORIDE 111 mEQ/L (98-107); CREATININE 2.7 mg/dL (0.5-0.9); FERRITIN 475 ng/mL (13-150); HEMOLYSIS 2; MAGNESIUM 2.3 mg/dL (1.7-2.5); PHOSPHORUS 8.9 mg/dL (2.5-4.8); SODIUM 147 mEQ/L (135-145); TOTAL PROTEIN 7.7 g/dL (6.6-8.7)
[2016-03-31 06:29] LABS: INR 3.9 (0.9-1.1); PROTHROMBIN TIME 41.6 SEC (9.30-11.50)
[2016-03-31 07:10] LABS: CRP QUANT 15.5 mg/dL (< 0.5); URIC ACID 9.7 mg/dL (3.0-7.5)
[2016-03-31 08:00] VITALS: BP 105/53
[2016-03-31 08:52] LABS: ANISOCYTOSIS 1+; BAND NEUTROPHILS % (MANUAL) 12 % (0-8); HYPOCHROMASIA 1+; LYMPHOCYTES % (MANUAL) 11 % (20-45); NEUTROPHILS % (MANUAL) 70 % (45-75); TOTAL CELLS COUNTED 100
[2016-03-31 08:53] LABS: MACROCYTES 1+; POLYCHROMASIA OCCASIONAL
[2016-03-31] MEDS: Aspirin EC 81mg tab ORAL SCH (09:00)
[2016-03-31] MEDS: Vitamin A&D Oint 2oz Tube TOPIC SCH (09:00)
[2016-03-31] MEDS: Nateglinide 60mg tab ORAL SCH (09:00)
[2016-03-31 09:04] LABS: BASOPHILS % (MANUAL) 0 % (0-2); EOSINOPHILS % (MANUAL) 0 % (0-3); PLATELET ESTIMATE ADEQUATE; PLATELET MORPHOLOGY NORMAL
[2016-03-31] MEDS ORDERED: Fleet's Enema 133ml RECTAL ONE (10:30)
--- NOTE | 2016-03-31 10:52 | Pulmonology Progress Note ---
Assessment/Plan Problems: (1) Acute respiratory failure (2) Acute encephalopathy (3) Sepsis (4) Hypertensive urgency, malignant (5) ATN (acute tubular necrosis) (6) group home resident (7) Diabetes mellitus (8) DNR (do not resuscitate) (9) Gram-negative bacteremia Assessment/Plan patients respiratory status changed. she has short rapid /agonal breathing on 100 % nonrebreathing mask K was 6 today, pt cant swallow, family didn't want any NG tube I talked to pts son and sister ( at the bed site), they all agreed with comfort care and morphine PRN, Pt will be transferred to med/surg private room. Awaiting for family to arrange for a prototype technician. Subjective ROS Limited/Unobtainable: No Interval Events: obtunet, agonal breathing Constitutional: Reports: no symptoms Allergies: Coded Allergies: No Known Allergies (Unverified , 02/11/16) Objective Last 24 Hour Vital Signs Date Time Temp Pulse Resp B/P Pulse Ox O2 Delivery O2 Flow Rate FiO2 03/31/16 08:00 96.3 93 18 105/53 100 Non-Rebreather 100 03/31/16 07:30 95 20 100 Non-Rebreather 15.0 100 03/31/16 07:20 100 03/31/16 07:19 93 20 100 Non-Rebreather 15.0 100 03/31/16 05:39 118 105/53 03/31/16 05:37 105/53 03/31/16 04:17 118 24 92 Non-Rebreather 15.0 100 03/31/16 04:10 97 03/31/16 04:07 100 03/31/16 04:06 118 25 93 Non-Rebreather 15.0 100 03/31/16 04:00 97.0 121 19 105/53 94 Simple Mask 15.0 03/31/16 00:48 134 128/68 03/31/16 00:00 97.8 134 15 128/68 98 Simple Mask 15.0 03/30/16 23:59 134 03/30/16 23:12 125 24 96 Non-Rebreather 15.0 100 03/30/16 23:12 125 24 96 Non-Rebreather 15.0 100 03/30/16 21:25 147/71 03/30/16 20:00 97.7 148 15 147/71 98 Simple Mask 15.0 03/30/16 20:00 135 03/30/16 19:19 113 24 100 Non-Rebreather 15.0 100 03/30/16 19:12 100 03/30/16 19:11 114 24 99 Non-Rebreather 15.0 100 03/30/16 18:40 110 158/79 03/30/16 16:00 97.2 110 15 158/79 95 Simple Mask 15.0 03/30/16 15:56 108 03/30/16 15:22 Non-Rebreather 03/30/16 15:21 Non-Rebreather 03/30/16 14:11 135/77 03/30/16 13:16 140 135/77 03/30/16 12:00 143 03/30/16 12:00 97.7 150 18 135/77 100 Venturi Mask 6.0 03/30/16 11:06 Non-Rebreather 03/30/16 11:05 Non-Rebreather Intake and Output 03/30/16 03/31/16 18:59 06:59 Intake Total 790 ml 700 ml Output Total 1250 ml 950 ml Balance -460 ml -250 ml Intake Oral 100 ml IV Total 690 ml 700 ml Output Urine Total 1250 ml 950 ml General Appearance: WD/WN HEENT: normocephalic Respiratory/Chest: crackles/rales Cardiovascular: normal peripheral pulses, normal rate Abdomen: normal bowel sounds, soft, non tender Extremities: no cyanosis, no clubbing Skin: no rash 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 Laboratory Tests 03/31/16 03:30: White Blood Count 18.7#H, Red Blood Count 3.45L, Hemoglobin 10.6L, Hematocrit 35.6L, Mean Corpuscular Volume 103H, Mean Corpuscular Hemoglobin 30.9, Mean Corpuscular Hemoglobin Concent 29.9L, Red Cell Distribution Width 15.8H, Platelet Count 213, Mean Platelet Volume 6.9, Neutrophils (%) (Auto) , Lymphocytes (%) (Auto) , Monocytes (%) (Auto) , Eosinophils (%) (Auto) , Basophils (%) (Auto) , Differential Total Cells Counted 100, Neutrophils % ( Manual) 70, Lymphocytes % (Manual) 11L, Monocytes % (Manual) 7, Eosinophils % ( Manual) 0, Basophils % (Manual) 0, Band Neutrophils 12H, Platelet Estimate Adequate, Platelet Morphology Normal, Polychromasia Occasional, Hypochromasia 1+ , Anisocytosis 1+, Macrocytosis 1+, Prothrombin Time 41.6H, Prothromb Time International Ratio 3.9H, Sodium Level 147H, Potassium Level 6.0*H, Chloride Level 111H, Carbon Dioxide Level 24, Anion Gap 12, Blood Urea Nitrogen 49H, Creatinine 2.7H, Estimat Glomerular Filtration Rate , Glucose Level 151H, Uric Acid 9.7H, Calcium Level 8.6, Phosphorus Level 8.9H, Magnesium Level 2.3, Iron Level 34L, Total Iron Binding Capacity 163L, Percent Iron Saturation 21, Unsaturated Iron Binding 129, Ferritin 475H, Total Bilirubin < 0.2, Gamma Glutamyl Transpeptidase 95H, Aspartate Amino Transf (AST/SGOT) 38, Alanine Aminotransferase (ALT/SGPT) 23, Alkaline Phosphatase 174H, Total Creatine Kinase 27, C-Reactive Protein, Quantitative 15.5H, Pro-B-Type Natriuretic Peptide 54492S, Total Protein 7.7, Albumin 2.6L, Globulin 5.1, Albumin/Globulin Ratio 0.5L, Vitamin B12 Level 821, Folate [Pending], Thyroid Stimulating Hormone (TSH) 40.690H Current Medications Medications (Trade) Dose Ordered Sig/Matteo Route PRN Reason Start Time Stop Time Status Last Admin Dose Admin Acetaminophen (Tylenol) 650 mg Q4H PRN ORAL fever 03/28/16 16:00 04/27/16 15:59 Dextrose STAT PRN IV Hypoglycemia 03/28/16 16:00 04/27/16 15:59 Levalbuterol HCl (Xopenex) 0.63 mg Q4HRT HHN 03/31/16 03:00 04/05/16 02:59 03/31/16 07:20 Lorazepam (Ativan 2mg/ml 1ml) 2 mg Q4H PRN IV agitation 03/31/16 12:00 04/07/16 11:59 UNV Morphine Sulfate (Morphine Sulfate) 4 mg Q4H PRN IVP tachypnea respiratory >20 03/31/16 12:00 04/07/16 11:59 UNV Sodium Chloride (Sodium Chloride 1000ml bag) 1,000 ml @ 0 mls/hr Q0M IV 03/29/16 17:30 04/28/16 17:29 AUDIE MAY Mar 31, 2016 10:52
[2016-03-31] MEDS ORDERED: Diltiazem 90mg tab ORAL SCH (12:00)
[2016-03-31] MEDS ORDERED: LORazepam Inj 2mg/ml 1ml IV PRN (12:00)
[2016-03-31] MEDS ORDERED: Morphine Sulfate 4mg/ml Inj IVP PRN (12:00)
--- NOTE | 2016-03-31 13:25 | Diagnostic Imaging Report ---
Indication: Dyspnea Comparison: 03/29/16 A single view chest radiograph was obtained. Findings: Increased or edema demonstrated. Bilateral pleural effusions are present worse on the right. Lung volumes remain low. Vascular pedicle is prominent. Impression: Worsening CHF
--- NOTE | 2016-03-31 13:33 | Diagnostic Imaging Report ---
APPROVED REPORT CPT Code: 63778 Present Symptoms Lower Extremity Pain: Shortness of breath BILATERAL: Imaging reveals a patent deep venous system bilaterally. There is no evidence of thrombus within the femoral, popliteal or tibial segments. The greater saphenous veins are also within normal limits. Doppler indicates normal spontaneous flow within these segments.
--- NOTE | 2016-03-31 14:28 | Discharge Summary ---
Discharge Summary Hospital Course Date of Admission Mar 26, 2016 at 20:15 Date of Discharge Admitting Diagnosis hypertensive malignancy HPI Melinda Hobbs is a 80 year old female who was admitted on Mar 26, 2016 at 20:15 for Hypertensive Malignancy Hospital Course Dictated no. [id number]. Discharge Discharge Disposition Patient was discharged to Discharge Diagnoses: EMELY LORD Mar 31, 2016 14:28
--- NOTE | 2016-03-31 14:59 | General Progress Note ---
Progress Note Progress Note Pt became suddenly bradycardic, the sister was at the bed site. Patient at 11:25 am. Family aware and expecting the event. AUDIE MAY Mar 31, 2016 14:58
--- NOTE | 2016-03-31 16:10 | General Progress Note ---
Assessment/Plan Status: unchanged, deteriorating Assessment/Plan Conditions; 1) Gram-negative bacteremia (2) Sepsis (3) Hypertensive urgency, malignant (4) Acute encephalopathy (5) DNR (do not resuscitate) Status: - Renal failure, likely chronic , h/o small kidney- - ? DM and or HTN (1) Sepsis / UTI (2) Atrial flutter with rapid ventricular response (3) Acute encephalopathy (4) Hypothyroidism. (5) Hyperglycemia. DM Patient now on comfort care and MS drip. Preterminal- will sign off Subjective Date patient seen: Mar 31, 2016 Time patient seen: 09:00 ROS Limited/Unobtainable: No Allergies: Coded Allergies: No Known Allergies (Unverified , 02/11/16) Objective Last 24 Hour Vital Signs Date Time Temp Pulse Resp B/P Pulse Ox O2 Delivery O2 Flow Rate FiO2 03/31/16 11:03 102 20 90 Non-Rebreather 15.0 100 03/31/16 10:53 100 03/31/16 10:52 101 25 90 Non-Rebreather 15.0 100 03/31/16 08:00 96.3 93 18 105/53 100 Non-Rebreather 100 03/31/16 08:00 100 03/31/16 07:30 95 20 100 Non-Rebreather 15.0 100 03/31/16 07:20 100 03/31/16 07:19 93 20 100 Non-Rebreather 15.0 100 03/31/16 05:39 118 105/53 03/31/16 05:37 105/53 03/31/16 04:17 118 24 92 Non-Rebreather 15.0 100 03/31/16 04:10 97 03/31/16 04:07 100 03/31/16 04:06 118 25 93 Non-Rebreather 15.0 100 03/31/16 04:00 97.0 121 19 105/53 94 Simple Mask 15.0 03/31/16 00:48 134 128/68 03/31/16 00:00 97.8 134 15 128/68 98 Simple Mask 15.0 03/30/16 23:59 134 03/30/16 23:12 125 24 96 Non-Rebreather 15.0 100 03/30/16 23:12 125 24 96 Non-Rebreather 15.0 100 03/30/16 21:25 147/71 03/30/16 20:00 97.7 148 15 147/71 98 Simple Mask 15.0 03/30/16 20:00 135 03/30/16 19:19 113 24 100 Non-Rebreather 15.0 100 03/30/16 19:12 100 03/30/16 19:11 114 24 99 Non-Rebreather 15.0 100 03/30/16 18:40 110 158/79 Intake and Output 03/30/16 03/31/16 19:00 07:00 Intake Total 840 ml 600 ml Output Total 1250 ml 950 ml Balance -410 ml -350 ml Intake Oral 100 ml IV Total 740 ml 600 ml Output Urine Total 1250 ml 950 ml Laboratory Tests 03/31/16 03:30: White Blood Count 18.7#H, Red Blood Count 3.45L, Hemoglobin 10.6L, Hematocrit 35.6L, Mean Corpuscular Volume 103H, Mean Corpuscular Hemoglobin 30.9, Mean Corpuscular Hemoglobin Concent 29.9L, Red Cell Distribution Width 15.8H, Platelet Count 213, Mean Platelet Volume 6.9, Neutrophils (%) (Auto) , Lymphocytes (%) (Auto) , Monocytes (%) (Auto) , Eosinophils (%) (Auto) , Basophils (%) (Auto) , Differential Total Cells Counted 100, Neutrophils % ( Manual) 70, Lymphocytes % (Manual) 11L, Monocytes % (Manual) 7, Eosinophils % ( Manual) 0, Basophils % (Manual) 0, Band Neutrophils 12H, Platelet Estimate Adequate, Platelet Morphology Normal, Polychromasia Occasional, Hypochromasia 1+ , Anisocytosis 1+, Macrocytosis 1+, Prothrombin Time 41.6H, Prothromb Time International Ratio 3.9H, Sodium Level 147H, Potassium Level 6.0*H, Chloride Level 111H, Carbon Dioxide Level 24, Anion Gap 12, Blood Urea Nitrogen 49H, Creatinine 2.7H, Estimat Glomerular Filtration Rate , Glucose Level 151H, Uric Acid 9.7H, Calcium Level 8.6, Phosphorus Level 8.9H, Magnesium Level 2.3, Iron Level 34L, Total Iron Binding Capacity 163L, Percent Iron Saturation 21, Unsaturated Iron Binding 129, Ferritin 475H, Total Bilirubin < 0.2, Gamma Glutamyl Transpeptidase 95H, Aspartate Amino Transf (AST/SGOT) 38, Alanine Aminotransferase (ALT/SGPT) 23, Alkaline Phosphatase 174H, Total Creatine Kinase 27, C-Reactive Protein, Quantitative 15.5H, Pro-B-Type Natriuretic Peptide 50766P, Total Protein 7.7, Albumin 2.6L, Globulin 5.1, Albumin/Globulin Ratio 0.5L, Vitamin B12 Level 821, Folate [Pending], Thyroid Stimulating Hormone (TSH) 40.690H Height (Feet): 5 Height (Inches): 3.00 Weight (Pounds): 150 General Appearance: no apparent distress SOCORRO NUNN Mar 31, 2016 16:10
--- NOTE | 2016-03-31 22:58 | Discharge Summary ---
DATE OF ADMISSION: 03/26/2016 DATE OF DISCHARGE: 03/31/2016 ADMITTING DIAGNOSES: 1. Shortness of breath. 2. Renal failure. 3. Hypertension. 4. Congestive heart failure. 5. Atrial fibrillation. 6. Cerebrovascular disease. 7. Right hemiparesis. 8. Hypercholesterolemia. 9. Diabetes type 2. DISCHARGE DIAGNOSES: 1. Urinary tract infection. 2. Sepsis. 3. Shortness of breath. 4. Renal failure. 5. Hypertension. 6. Congestive heart failure. 7. Atrial fibrillation. 8. Cerebrovascular disease. 9. Right hemiparesis. 10. Hypercholesterolemia. 11. Diabetes type 2. 12. Leukocytosis. HOSPITAL COURSE BY PROBLEM LIST: 1. Urinary tract infection/sepsis. Both urine and blood cultures grew out E. coli ESBL. The patient was placed empirically on cefepime initially. This was changed to ertapenem when the patient's blood cultures were available. An Infectious Disease consultation was obtained with Dr. Johny Stone. 2. Shortness of breath. A Pulmonary consultation was obtained with Dr. Mott. The patient was placed on albuterol nebulized q.4 hours p.r.n. A chest x-ray failed to demonstrate pneumonia. The patient's shortness of breath was thought to be secondary to congestive heart failure. 3. Renal failure. The patient received intravenous fluids during the hospitalization. The patient's renal failure became worse during the hospitalization. The patient became hyperkalemic. A Nephrology consultation was obtained with Dr. Miller. 4. Hypertension. The patient remained on Vasotec 2.5 mg intravenously p.r.n. A Cardiology consultation was obtained with Dr. Serjio San. The patient received intravenous Lasix during the hospitalization. 5. Atrial fibrillation as above. A Cardiology consultation was obtained with Dr. Serjio San. 6. History of cerebrovascular disease. 7. History of right hemiparesis. 8. Hypercholesterolemia. The patient remained on atorvastatin. Cholesterol was normal during the hospitalization. 9. Diabetes type 2. The patient remained on a NovoLog sliding scale during the hospitalization. The patient also remained on Starlix 60 mg three times daily with meals. Blood sugar is well controlled during the hospitalization. 10. The patient became acutely ill on 03/28/2016. The patient was transferred back to the [facility]. On 03/29/2016, the patient was transferred to the [facility] unit. A family conference was held with Dr. Mott on 03/31/2016. Family decided to place the patient DNR. The patient went into asystole at 11:30 a.m. on 03/31/2016. The patient was pronounced by Dr. Mott at 11:30 a.m. Vladimir Shelby M.D. DR: Nathan JOB#: [id number] CC: TRISTAN
[2016-04-01 07:42] LABS: FOLIC ACID 15.5 ng/mL (3.1-17.5)
--- NOTE | 2016-04-05 10:29 | Diagnostic Imaging Report ---
Indication: SOB Technique: One view of the chest Comparison: 03/26/2016 Findings: There are bilateral pleural effusions, left greater than right, new since the prior study. The heart size is normal. Aorta is tortuous ectatic and calcified. Upper mediastinum is unremarkable. Impression: Bilateral pleural effusions, new since 03/26/2016 This agrees with the preliminary interpretation provided overnight by [facility] teleradiology service.
== END 2016-03-31 15:00 | disposition expired | DRG 871 ==
LOC: EDBD 18:19 → EMR 18:29 → 2W 20:15 → EDBEDREQ 03-27 07:18 → 4W 03-28 15:35 → 2W 03-29 17:15
DX: A41.51 Sepsis due to Escherichia coli [E. coli] (principal); N17.0 Acute kidney failure with tubular necrosis; J96.00 Acute respiratory failure, unspecified whether with hypoxia or hypercapnia; G93.40 Encephalopathy, unspecified; E87.2 Acidosis; E11.65 Type 2 diabetes mellitus with hyperglycemia; I48.92 Unspecified atrial flutter; E86.0 Dehydration; I48.91 Unspecified atrial fibrillation; I16.0 Hypertensive urgency; N39.0 Urinary tract infection, site not specified; I69.951 Hemiplegia and hemiparesis following unspecified cerebrovascular disease affecting right dominant side; I50.9 Heart failure, unspecified; D72.829 Elevated white blood cell count, unspecified; E87.5 Hyperkalemia; I12.9 Hypertensive chronic kidney disease with stage 1 through stage 4 chronic kidney disease, or unspecified chronic kidney disease; Z66 Do not resuscitate; Z51.5 Encounter for palliative care; K21.9 Gastro-esophageal reflux disease without esophagitis; E78.00 Pure hypercholesterolemia, unspecified; N18.9 Chronic kidney disease, unspecified; Z16.12 Extended spectrum beta lactamase (ESBL) resistance; E03.9 Hypothyroidism, unspecified; Z79.01 Long term (current) use of anticoagulants; R65.20 Severe sepsis without septic shock; J40 Bronchitis, not specified as acute or chronic; Z79.82 Long term (current) use of aspirin; B96.20 Unspecified Escherichia coli [E. coli] as the cause of diseases classified elsewhere; R00.1 Bradycardia, unspecified
CPT/HCPCS: 36415; 70450; 71010; 80048; 80053; 80061; 81003; 82550; 82553; 82607; 82728; 82746; 82962; 82977; 83540; 83550; 83605; 83690; 83735; 83880; 84100; 84443; 84484; 84550; 85007; 85025; 85610; 85730; 86140; 87040; 87081; 87086; 87181; 93005; 93970; 94640; 94664; J1815; J7620; J8499